=== PATIENT | male | born 1960 | race Caucasian/White ===

== ENCOUNTER 2019-07-18 14:09 | Emergency (ER) | payer OTHER ==
[2019-07-18] MEDS ORDERED: Piperacillin/Tazobac ADVAN(*) 3.375 GM in NS 0.9% 100 ML* 100 ML IVPB ONE (14:28)
[2019-07-18] MEDS ORDERED: Vancomycin(*) 1,500 MG in NS 0.9% 250 ML* 250 ML IVPB ONE (14:28)
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
[2019-07-18 14:56] LABS: Hematocrit 23 % (42-52); Hemoglobin 7.4 g/dL (14.0-18.0); Mean Corpuscular HGB Conc 32 g/dL (31-36); Mean Corpuscular Hemoglobin 25 pg (27-31); Mean Corpuscular Volume 76 fL (80-94); Mean Platelet Volume 7.4 fL (7.4-10.4); Platelet Count 962 10^3/uL (150-450); Red Blood Count 3.03 10^6 /uL (4.18-5.48); Red Cell Distribution Width 23 % (10-15); White Blood Count 24.4 10^3/uL (3.5-10.8)
[2019-07-18] MEDS ORDERED: NS 0.9% 1000 ML** 1,000 ML IV.FLUID IV ONE (15:06)
[2019-07-18 15:10] LABS: Albumin 2.7 g/dL (3.2-5.2); Albumin/Globulin Ratio 0.6 (1-3); BUN/Creatinine Ratio 25.7 (8-20); C Reactive Protein 262.66 mg/L (<8.01); Calcium 9.5 mg/dL (8.6-10.3); EGFR Non-African American 52.1 (>60); Globulin 4.9 g/dL (2-4); Potassium 4.7 mmol/L (3.5-5.0); Total Bilirubin 0.3 mg/dL (0.2-1.0); Total Protein 7.6 g/dL (6.4-8.9)
[2019-07-18] MEDS ORDERED: NS 0.9% 1000 ML** 1,000 ML IV ONE (15:17)
[2019-07-18 15:29] LABS: ABS Basophils 0.1 10^3/ul (0-0.2); ABS Lymphocytes 1.6 10^3/ul (1.0-4.8); ABS Monocytes 0.9 10^3/ul (0-0.8); ABS Neutrophils 21.9 10^3/ul (1.5-7.7); Lymphocyte % 6.5 %; Microcytosis 1+; Polychromasia 1+
[2019-07-18 16:45] LABS: Erythrocyte Sed Rate > 120 mm/Hr (0-19)
[2019-07-18 17:21] LABS: Urine Appearance Turbid; Urine Bilirubin Negative (Negative); Urine Blood 1+ (Negative); Urine Color Amber; Urine Glucose Negative (Negative); Urine Ketones Negative (Negative); Urine Nitrite Negative (Negative); Urine Protein 1+(30 mg/dL) (Negative); Urine Specific Gravity 1.009 (1.010-1.030); Urine Urobilinogen Negative (Negative)
[2019-07-18 17:26] LABS: Urine Bacteria 1+ (Absent); Urine Red Blood Cell Trace(0-2/hpf) (Absent); Urine Squamous Epithelial Cell Present (Absent); Urine White Blood Cell 3+(>20/hpf) (Absent)
[2019-07-18 17:33] VITALS: BP 92/79
--- NOTE | 2019-07-19 14:23 | ED ---
Imaging and Labs Follow Up Follow Up Type: Labs/Cultures Labs/Culture Result: Initial blood cultures show growth in one of 4 bottles of gram-positive cocci in clusters negative for MRSA or MSSA. Patient Communication/Plan: Results faxed to [facility] as the patient was transferred. Nothing further at this time. Provider Diagnoses: Osteomyelitis, Microcytic anemia
== END 2019-07-18 17:30 | disposition short-term general hospital (02) ==
LOC: ED 14:09
DX: M86.162 Other acute osteomyelitis, left tibia and fibula (principal); D50.9 Iron deficiency anemia, unspecified; L89.893 Pressure ulcer of other site, stage 3; L89.152 Pressure ulcer of sacral region, stage 2; L97.529 Non-pressure chronic ulcer of other part of left foot with unspecified severity; Z79.82 Long term (current) use of aspirin
CPT/HCPCS: 36415; 71045; 80053; 81003; 81015; 83605; 85025; 85060; 85652; 86140; 86850; 86900; 86901; 87040; 87077; 87086; 87150; 87205; 96361; 96365; 96366; 99284; J2543; J3370

== ENCOUNTER 2019-07-28 11:15 | Inpatient (IN) | payer OTHER ==
[2019-07-28] MEDS ORDERED: Senna TAB 8.6 mg* TAB PO PRN (16:22)
[2019-07-28] MEDS ORDERED: Acetaminophen TAB* 325 MG PO PRN (16:22)
[2019-07-28] MEDS ORDERED: Magnesium Hydroxide LIQ* 30 ML UDC PO PRN (16:22)
[2019-07-28] MEDS: Docusate CAP* 100 MG PO SCH (19:08)
[2019-07-28] MEDS ORDERED: ceFAZolin VIAL(*) 2 GM in NS 0.9% 100 ML* 100 ML IVPB SCH (20:00)
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
[2019-07-28 20:29] LABS: Urine Appearance Clear; Urine Bilirubin Negative (Negative); Urine Blood Negative (Negative); Urine Color Straw; Urine Glucose Negative (Negative); Urine Ketones Negative (Negative); Urine Nitrite Negative (Negative); Urine Protein Negative (Negative); Urine Urobilinogen Negative (Negative)
[2019-07-28 20:34] LABS: Urine Bacteria Absent (Absent); Urine Red Blood Cell Trace(0-2/hpf) (Absent); Urine White Blood Cell 2+(11-20/hpf) (Absent)
[2019-07-28] MEDS ORDERED: Zinc Oxide 40% (TOPICAL)* TUBE TOPICAL SCH (21:00)
[2019-07-28] MEDS: ceFAZolin 2 GM PREMIX in ORs 2 GM/50 ML BAG IV SCH (21:11)
[2019-07-28] MEDS: Heparin VIAL(*) 5000 UNITS/ML VIAL (FIVE THOUSAND) SUBCUT SCH (21:58)
[2019-07-29] MEDS: oxyCODONE TAB* 5 MG TAB PO PRN (03:57)
[2019-07-29] MEDS: ceFAZolin 2 GM PREMIX in ORs 2 GM/50 ML BAG IV SCH ×3 (04:49→21:52)
[2019-07-29 06:00] LABS: Hematocrit 36 % (42-52); Hemoglobin 11.8 g/dL (14.0-18.0); Mean Corpuscular HGB Conc 33 g/dL (31-36); Mean Corpuscular Hemoglobin 28 pg (27-31); Mean Corpuscular Volume 84 fL (80-94); Mean Platelet Volume 8.8 fL (7.4-10.4); Platelet Count 501 10^3/uL (150-450); Red Blood Count 4.21 10^6 /uL (4.18-5.48); Red Cell Distribution Width 20 % (10-15)
[2019-07-29 06:23] LABS: Albumin 2.4 g/dL (3.2-5.2); Albumin/Globulin Ratio 0.8 (1-3); BUN/Creatinine Ratio 9.7 (8-20); Calcium 8.1 mg/dL (8.6-10.3); EGFR African American 72.5 (>60); EGFR Non-African American 59.9 (>60); Globulin 3.2 g/dL (2-4); Potassium 4.2 mmol/L (3.5-5.0); Total Bilirubin 0.2 mg/dL (0.2-1.0); Total Protein 5.6 g/dL (6.4-8.9)
[2019-07-29 07:40] LABS: ABS Eosinophils 0.2 10^3/ul (0-0.6); ABS Lymphocytes 1.8 10^3/ul (1.0-4.8); ABS Monocytes 0.4 10^3/ul (0-0.8); ABS Neutrophils 6.5 10^3/ul (1.5-7.7); Eosinophil % 2.7 %; Lymphocyte % 19.7 %
[2019-07-29] MEDS: Heparin VIAL(*) 5000 UNITS/ML VIAL (FIVE THOUSAND) SUBCUT SCH ×2 (08:54→21:56)
[2019-07-29] MEDS: Docusate CAP* 100 MG PO SCH ×2 (08:59→21:37)
[2019-07-29] MEDS: Nicotine PATCH 14 MG/24 HR* PATCH TRANSDERM SCH (08:59)
[2019-07-29 16:52] LABS: C Reactive Protein 51.17 mg/L (<8.01)
[2019-07-29 18:59] LABS: Erythrocyte Sed Rate 58 mm/Hr (0-19)
--- NOTE | 2019-07-29 19:12 | PN ---
Progress Note Date of Service: 07/29/19 Note: GAMALIEL FRIAS was visited. Therapy notes read and reviewed. Grumpy and obstreperous but participated in therapy. On IV antibiotics Ancef 2 gm IV Q 8. He is otherwise doing ok. Refuses Nicotine patch Current Medications: Active Medications Generic Name Dose Route Start Last Admin Trade Name Freq PRN Reason Stop Dose Admin Acetaminophen 650 mg 07/28/19 16:22 Tylenol Tab* PO Q6H PRN MILD PAIN or TEMP > 100.4 Docusate Sodium 100 mg 07/28/19 21:00 07/29/19 08:59 Colace Cap* PO Not Given BID CHERRY Heparin Sodium (Porcine) 1 ml 07/29/19 06:00 07/29/19 14:18 Heparin Flush Picc/Ml/Cvc(*) FLUSH 1 ml 0600,1800 CHERRY Administration Protocol Heparin Sodium (Porcine) 5,000 units 07/28/19 21:00 07/29/19 08:54 Heparin Vial(*) SUBCUT 5,000 units Q12HR CHERRY Administration Cefazolin Sodium/Dextrose 2 gm in 50 mls @ 100 mls/hr 07/28/19 21:00 13:30 Kefzol 2 Gm Premix In Ors(*) IV 100 mls/hr Q8H CHERRY Administration Magnesium Hydroxide 30 ml 07/28/19 16:22 Milk Of Magnesia Liq* PO Q6H PRN CONSTIPATION Nicotine 1 patch 07/29/19 09:00 07/29/19 08:59 Nicotine Patch 14 Mg/24 Hr* TRANSDERM Not Given DAILY [facility] Oxycodone HCl 5 mg 07/28/19 18:31 07/29/19 03:57 Roxycodone Tab* PO 5 mg Q4H PRN Administration PAIN - SEVERE Pharmacy Profile Note 1 note 07/29/19 21:00 Nicotine Patch Removal Note* PATCH OFF 2100 CHERRY Senna 2 tab 07/28/19 16:22 Senokot 8.6 Mg Tab* PO BEDTIME PRN CONSTIPATION Zinc Oxide 1 applic 07/28/19 21:00 07/28/19 20:46 Zinc Oxide 40% (Topical)* TOPICAL 1 applic BEDTIME CHERRY Administration Vital Signs: Vital Signs Temp Pulse Resp BP Pulse Ox 98.1 F 98 20 102/62 95 07/29/19 16:05 07/29/19 16:05 07/29/19 16:05 07/29/19 16:44 07/29/19 08:55 Lab Results: Laboratory Results - last 24 hr 07/28/19 07/29/19 07/29/19 19:35 05:35 05:35 WBC 9.0 RBC 4.21 Hgb 11.8 L Hct 36 L MCV 84 MCH 28 MCHC 33 RDW 20 H Plt Count 501 H D MPV 8.8 Neut % (Auto) 73.0 Lymph % (Auto) 19.7 [place] % (Auto) 4.1 Eos % (Auto) 2.7 Baso % (Auto) 0.5 Absolute Neuts (auto) 6.5 Absolute Lymphs (auto) 1.8 Absolute Monos (auto) 0.4 Absolute Eos (auto) 0.2 Absolute Basos (auto) 0.0 Absolute Nucleated RBC 0.0 Nucleated RBC % 0.0 ESR 58 H Sodium 136 Potassium 4.2 Chloride 101 Carbon Dioxide 29 Anion Gap 6 BUN 12 Creatinine 1.24 H Est GFR ( Amer) 72.5 Est GFR (Non-Af Amer) 59.9 BUN/Creatinine Ratio 9.7 Glucose 82 Calcium 8.1 L Total Bilirubin 0.20 AST 10 L ALT 3 L Alkaline Phosphatase 64 C-Reactive Protein 51.17 H Total Protein 5.6 L Albumin 2.4 L Globulin 3.2 Albumin/Globulin Ratio 0.8 L Urine Color Straw Urine Appearance Clear Urine pH 8.0 Ur Specific Rowe 1.010 Urine Protein Negative Urine Ketones Negative Urine Blood Negative Urine Nitrate Negative Urine Bilirubin Negative Urine Urobilinogen Negative Ur Leukocyte Esterase Trace A Urine WBC (Auto) 2+(11-20/hpf) A Urine RBC (Auto) Trace(0-2/hpf) Urine Bacteria Absent Urine Glucose Negative Exam: GENERAL: In no distress LUNGS: Clear bilaterally HEART: Regular rhythm ABDOMEN: Soft EXTREMITIES: Left AKA, stump in ampu-shield NEUROLOGIC: Sensation intact in RLE. Moves UE and RLE with 5/5 strength. Hip flx on left at least 4 Assessment/Plan: 1. Left above the knee amputation: PT/OT. Ampu shield at all times except for skin check 2. Extensive osteomyelitis: Ancef 2 gm IV Q8H x 27 more days 3. Urethral Stricture: Valladares 4. Cataracts: Optho follow up after d/c 5. DVT Prophylaxis: Heparin S/Q 6. Advanced Directives: Full Code 7. Sacral pressure ulcer: Zinc Oxide 8. Nicotine Addiction: Refuses patch. 07/29/19 19:28
[2019-07-29] MEDS ORDERED: Nicotine Patch Removal NOTE PATCH OFF SCH (21:00)
[2019-07-29] MEDS: Zinc Oxide 40% (TOPICAL)* TUBE TOPICAL SCH (22:12)
[2019-07-30] MEDS: oxyCODONE TAB* 5 MG TAB PO PRN (01:40)
[2019-07-30] MEDS: ceFAZolin 2 GM PREMIX in ORs 2 GM/50 ML BAG IV SCH ×3 (05:31→22:01)
[2019-07-30] MEDS: Heparin VIAL(*) 5000 UNITS/ML VIAL (FIVE THOUSAND) SUBCUT SCH ×2 (09:49→22:14)
[2019-07-30] MEDS: Zinc Oxide 40% (TOPICAL)* TUBE TOPICAL SCH ×4 (09:50→22:17)
[2019-07-30] MEDS: Docusate CAP* 100 MG PO SCH ×2 (09:50→22:10)
[2019-07-30] MEDS: Nicotine PATCH 14 MG/24 HR* PATCH TRANSDERM SCH (09:50)
--- NOTE | 2019-07-30 18:29 | PN ---
Progress Note Date of Service: 07/30/19 Note: GAMALIEL FRIAS was visited. Therapy notes read and reviewed. Worked with therapy today and a little less grumpy. He continues to complain of itching. Will order Atarax Current Medications: Active Medications Generic Name Dose Route Start Last Admin Trade Name Freq PRN Reason Stop Dose Admin Acetaminophen 650 mg 07/28/19 16:22 Tylenol Tab* PO Q6H PRN MILD PAIN or TEMP > 100.4 Docusate Sodium 100 mg 07/28/19 21:00 07/30/19 09:50 Colace Cap* PO Not Given BID CHERRY Heparin Sodium (Porcine) 1 ml 07/29/19 06:00 07/30/19 13:16 Heparin Flush Picc/Ml/Cvc(*) FLUSH 1 ml 0600,1800 CHERRY Administration Protocol Heparin Sodium (Porcine) 5,000 units 07/28/19 21:00 07/30/19 09:49 Heparin Vial(*) SUBCUT 5,000 units Q12HR CHERRY Administration Hydroxyzine HCl 25 mg 07/30/19 18:24 Atarax Tab* PO Q6H PRN Pruritis Cefazolin Sodium/Dextrose 2 gm in 50 mls @ 100 mls/hr 07/28/19 21:00 12:26 Kefzol 2 Gm Premix In Ors(*) IV 100 mls/hr Q8H CHERRY Administration Magnesium Hydroxide 30 ml 07/28/19 16:22 Milk Of Magnesia Liq* PO Q6H PRN CONSTIPATION Oxycodone HCl 5 mg 07/28/19 18:31 07/30/19 01:40 Roxycodone Tab* PO 5 mg Q4H PRN Administration PAIN - SEVERE Senna 2 tab 07/28/19 16:22 Senokot 8.6 Mg Tab* PO BEDTIME PRN CONSTIPATION Zinc Oxide 1 applic 07/29/19 21:00 07/30/19 09:52 Zinc Oxide 40% (Topical)* TOPICAL 1 applic BID CHERRY Administration Vital Signs: Vital Signs Temp Pulse Resp BP Pulse Ox 98.3 F 90 18 99/56 100 07/30/19 16:00 07/30/19 16:00 07/30/19 16:00 07/30/19 16:00 07/30/19 16:00 Lab Results: Laboratory Results - last 24 hr 07/29/19 05:35 ESR 58 H Exam: GENERAL: In no distress LUNGS: Clear bilaterally HEART: Regular rhythm ABDOMEN: Soft EXTREMITIES: Left AKA, stump in ampu-shield NEUROLOGIC: Sensation intact in RLE. Moves UE and RLE with 5/5 strength. Hip flx on left at least 4 Assessment/Plan: 1. Left above the knee amputation: PT/OT. Ampu shield at all times except for skin check 2. Extensive osteomyelitis: Ancef 2 gm IV Q8H x 26 more days 3. Urethral Stricture: Valladares 4. Cataracts: Optho follow up after d/c 5. DVT Prophylaxis: Heparin S/Q 6. Advanced Directives: Full Code 7. Sacral pressure ulcer: Zinc Oxide 8. Nicotine Addiction: Refuses patch. 07/30/19 18:29
[2019-07-30] MEDS: Lactobacillus Acidophilus* 1 TAB PO SCH (22:14)
[2019-07-31] MEDS: hydrOXYzine HCL TAB* 25 MG PO PRN (03:06)
[2019-07-31] MEDS: ceFAZolin 2 GM PREMIX in ORs 2 GM/50 ML BAG IV SCH (06:08)
[2019-07-31] MEDS: Zinc Oxide 40% (TOPICAL)* TUBE TOPICAL SCH ×2 (09:47→20:46)
[2019-07-31] MEDS: Docusate CAP* 100 MG PO SCH ×2 (09:47→20:42)
[2019-07-31] MEDS: Heparin VIAL(*) 5000 UNITS/ML VIAL (FIVE THOUSAND) SUBCUT SCH ×2 (09:49→20:43)
[2019-07-31] MEDS: Lactobacillus Acidophilus* 1 TAB PO SCH ×2 (09:51→20:42)
--- NOTE | 2019-07-31 12:28 | PMRUTEAM ---
PMRU: Team Meeting Current Status: Physical Therapy: Current Status Current Rolling Status Supervision/Touching Current Supine <-> Sit Status Supervision/Touching Current Sit <-> Stand Status Supervision/Touching Current Bed <-> Chair Status Dependent Transfer/Bed Mobility Rolling Walker Recommended Devices Current Picking Up Object Dependent Status Current Car Transfer Status Dependent Current Ambulation Assistance Not attempted Status Current Wheelchair Propulsion Patient Refused Ability Status Current Stair Climbing Status Not attempted Current Curb Assistance Status Not attempted Objective Comments Ampu-shield successfully remained donned throughout session. Occupational Therapy: Current Status Current Upper Body Dressing Setup or Clean-up Assist Status Current Lower Body Dressing Dependent Status Current Footwear Status Dependent Current Bathing Status Partial/Moderate Current Grooming Status Setup or Clean-up Assist Current Toileting Status Dependent Current Toilet Transfer Status Dependent Current Eating Status Setup or Clean-up Assist Nursing: Current Status Skin Deviations [sacrum] Wound Skin Deviations [left high AKA Incision ] Skin Deviations [UK Stump] Incision Skin Deviations [Generalized] Rash Skin Deviations [Buttocks, Other groin] Skin Deviations [Right Toe] Other Skin Deviations [Right Arm] Abrasion,Rash Skin Deviations [Right Medial Other Ankle] Skin Deviations [Right Pressure Ulcer Buttocks] Skin Deviation Description [ stage 2. optifoam changed sacrum] Skin Deviation Description [ optifoam intact left high AKA] Skin Deviation Description [ Flat, pink rash on extremities, torso; pt reports Generalized] s/p recent application of unknown cream at former hospital Skin Deviation Description [ redness decreased. lotion applied Buttocks, groin] Skin Deviation Description [ nails blackened Right Toe] Skin Deviation Description [ scattered scabs, pinkness Right Arm] Skin Deviation Description [ Rough, ridged, brown skin Right Medial Ankle] lotion applied Skin Deviation Description [ stage 2 per report Right Buttocks] Rec Therapy: Current Status Summary of Assessment and Pt minimally involved in conversation, dysphoric Clinical Impression and labile at times, talking in a loud volume to this repairer typewriter. Pt made statements such as "what do you want" and " I can't do anything anymore". Pt identified few leisure interests, saying that he isn't able to do as much and that his life is different now (physically) prior to admission. Pt was open to trying pet therapy stating "maybe" and leisure visits while on the unit. Treatment Goals Pt will engage in leisure activities while on the unit as tolerated Treatment Plan Provide recreation therapy services and encourage involvement Social Work: Current Status Discharge Plan return home with home care svs and family support Potential for Family Training TBD Anticipated Discharge Home Destination Discharge With home care svs and family support Goals: Physical Therapy: Goals Goals to Be Accomplished in ( 10-14 Days) Goal: Rolling Assistance Independent Goal Supine <-> Sit Status Independent Goal Sit <-> Stand Status Independent Goal Bed <-> Chair Status Independent Transfer/Bed Mobility Rolling Walker Recommended Devices Goal: Picking Up Object Independent Goal: Car Transfer Status Supervision/Touching Goal: Ambulation Assistance Supervision/Touching Ambulation Assistive Devices Rolling Walker Ambulation Distance (ft) 25' Goal: Wheelchair Propulsion Supervision/Touching Ability Wheelchair Distance (ft) 150 Goal: Stairs Assistance Partial/Moderate Number of Stairs 1 Goal: Curb Assistance Partial/Moderate Goal: Home Exercise Program Independent Assistance Occupational Therapy: Goals Goals to be Completed in (Days 7-10 ) Goal Upper Body Dressing Setup or Clean-up Assist Routine Goal Lower Body Dressing Setup or Clean-up Assist Routine Goal Footwear Status Setup or Clean-up Assist Goal Bathing Routine (OT) Setup or Clean-up Assist Goal Grooming Routine Setup or Clean-up Assist Goal Toilet Hygiene and Setup or Clean-up Assist Clothing Management Routine Goal Toilet Transfer Routine Supervision/Touching Goal Functional Transfers for Supervision/Touching ADL Goal Feeding Routine Setup or Clean-up Assist Social Work: Goals Discharge Plan return home with home care svs and family support Potential for Family Training TBD Anticipated Discharge Home Destination Discharge With home care svs and family support Care Plan: Care Plan ADL's - Improve/Maintain Start: 07/29/19 16:33 Freq: DAILY@0700,1900 Status: Active Target: 07/30/19 Protocol: Activity Type Activity Date Activity User E-Sign Co-Sign Detail Recorded Client Recorded Date Recorded By Document 07/30/19 13:02 [id number] 07/30/19 13:02 [id number] 07/30/19 13:02 PMRU Outcome: ADL's/ADL Transfers Orders/Interventions Occupational Therapy Evaluation & Treatment Communication Tool in Patient Room Device Yes Address Deficits Secondary To: s/p Left AKA Patient to receive OT 5x/wk for 60-120 Therex min/day Self Care Management Group Therapy UE/LE ADL's with Assist Yes: supervision/ setup ADL Transfers with Assist supervision/ setup Toileting: Transfers,Clothing Management supervision/ ,Hygeine w/Assist setup Progression Toward Outcome/Goals Not Progressing Lack of Progression Comment Pt participated fair in treatment session, perseverated at beginning of session on being itchy and not wanting to don ampushield during session , RN aware. Coping/Psych-Improve/Maintain Start: 07/28/19 16:44 Freq: DAILY@0700,1900 Status: Active Target: 08/07/19 Protocol: Activity Type Activity Date Activity User E-Sign Co-Sign Detail Recorded Client Recorded Date Recorded By Document 07/31/19 10:00 [id number] 07/31/19 12:06 [id number] 07/31/19 10:00 PMRU Outcome: Coping/Psychosocial Current Coping Outcome/Goals Verbalization of Acceptance of Rehab Admit Verbalization of Sense of Control Over Health Status Utilization of Appropriate Problem Solving Techniques Willingness to Participate in Treatment Plan and Basic Needs Progression Toward Outcome/Goals Progressing Current Psychosocial Outcome/Goals Maintain/ Improve Emotional Health Demonstrates Knowledge of Healthy Coping Mechanisms Available Cooperate/ Participate in Plan Progression Toward Outcome/Goals Progressing DVT Prophylaxis- Improve/Maintain Start: 07/28/19 16:44 Freq: DAILY@0700,1900 Status: Active Target: 08/07/19 Protocol: Activity Type Activity Date Activity User E-Sign Co-Sign Detail Recorded Client Recorded Date Recorded By Document 07/31/19 10:00 [id number] 07/31/19 12:06 [id number] 07/31/19 10:00 PMRU Outcome: DVT Prophylaxis Current DVT Outcome/Goals Remains Free of DVT Complies with DVT Prophylaxis /Treatment Demonstrates Knowledge of DVT Prevention/ Treatment Progression Toward Outcome/Goals Progressing Discharge Planning - Improve/Maintain Start: 07/28/19 16:44 Freq: DAILY@0700,1900 Status: Active Target: 08/07/19 Protocol: Activity Type Activity Date Activity User E-Sign Co-Sign Detail Recorded Client Recorded Date Recorded By Document 07/31/19 10:00 [id number] 07/31/19 12:06 [id number] 07/31/19 10:00 PMRU Outcome: Discharge Planning Current Discharge Planning Outcome/Goals Demonstrates Understanding of Discharge Plan Homecare Referral - See Comment Progression Toward Outcome/Goals Progressing Education-Improve/Maintain Start: 07/28/19 16:44 Freq: DAILY@0700,1900 Status: Active Target: 08/07/19 Protocol: Activity Type Activity Date Activity User E-Sign Co-Sign Detail Recorded Client Recorded Date Recorded By Document 07/31/19 10:00 [id number] [email or web address] 07/31/19 12:06 [id number] 07/31/19 10:00 PMRU Outcome: Education Current Education Outcome/Goals Demonstrate/ Verbalize Understanding of Written Discharge Instructions Demonstrates Skills Encourage Questions Progression Toward Outcome/Goals Progressing /GI-Improve/Maintain Start: 07/28/19 16:44 Freq: DAILY@0700,1900 Status: Active Target: 08/07/19 Protocol: Activity Type Activity Date Activity User E-Sign Co-Sign Detail Recorded Client Recorded Date Recorded By Document 07/31/19 10:00 [id number] 07/31/19 12:06 [id number] 07/31/19 10:00 PMRU Outcome: Genitourinary/ Gastrointestinal Current Gastrointestinal Outcome/Goals Maintain/ Achieve Bowel Regularity in Accordance with Pt's Baseline Remain Free of Emesis Prevent Constipation Bowel Regularity at Home Laxatives as Ordered Other GI Outcome/Goals lactobacillis started this shift Progression Toward Outcome/Goals Progressing Current Genitourinary Outcome/Goals Maintain/ Achieve Urinary Continence Maintain/ Achieve Adequate Urinary Output Remain Free of Hospital- Acquired UTI Other Genitourinary Outcome/Goals evans present Progression Toward Outcome/Goals Progressing Medication Administration Start: 07/28/19 16:44 Freq: DAILY@0700,1900 Status: Active Target: 08/07/19 Protocol: Activity Type Activity Date Activity User E-Sign Co-Sign Detail Recorded Client Recorded Date Recorded By Document 07/31/19 10:00 [id number] 07/31/19 12:06 [id number] 07/31/19 10:00 PMRU Outcome: Medication Administration Assess Patient Knowledge/Teach Med Yes Education for all Meds Current Accounting Intern Outcome/Goals Family/ Caregiver Administer Medications at Home Demonstrates Understanding Progression Towards Outcome/Goals Progressing Is Patient Going Home on Lovenox? No Mobility- Improve/Maintain Start: 07/29/19 18:36 Freq: DAILY@0700,1900 Status: Active Target: 07/30/19 Protocol: Activity Type Activity Date Activity User E-Sign Co-Sign Detail Recorded Client Recorded Date Recorded By Document 07/29/19 18:36 [id number] 07/29/19 18:38 [id number] 07/29/19 18:36 PMRU Outcome: Mobility Physical Therapy Evaluation and Yes Treatment Activity OOB with Assistance Yes WBAT No NWB Yes TTWB No Device Yes Assistance Yes Patient to be seen 5x/wk for 60-120 min/ Therex day for: Mobility Training Gait Training W/C Mobility Balance Other Other Therapy Comment discharge training, discharge planning Current Mobility Outcome/Goals Improve Mobility Status Demonstrates Proper Use of Assistive Devices Progression Toward Outcome/Goals Goal Initiation Bed Mobility Yes: independent Transfers Yes: independent with RW Gait x ft Yes: supervision with RW, 25' W/C Mobility x ft Yes: 150' independent Up/Down Stairs Yes: 1 step with RW and min Ax1 With HEP Yes: independent Pain/Comfort- Improve/Maintain Start: 07/28/19 16:44 Freq: DAILY@0700,1900 Status: Active Target: 08/07/19 Protocol: Activity Type Activity Date Activity User E-Sign Co-Sign Detail Recorded Client Recorded Date Recorded By Document 07/31/19 10:00 [id number] 07/31/19 12:06 [id number] 07/31/19 10:00 PMRU Outcome: Pain/Comfort Current Pain/Comfort Outcome/Goals Demonstrates Knowledge and Use of Available Comfort Measures Achieves Acceptable Comfort/Pain Level as Determined by Patient/Condit Maintain Comfort Level Allowing Patient to Fully Participate in Rehab Progression Toward Outcome/Goals Progressing Rec Therapy- Improve/Maintain Start: 07/29/19 14:18 Freq: DAILY@0700,1900 Status: Active Target: 08/04/19 Protocol: Activity Type Activity Date Activity User E-Sign Co-Sign Detail Recorded Client Recorded Date Recorded By Document 07/29/19 14:18 [id number] 07/29/19 14:19 [id number] 07/29/19 14:18 PMRU Outcome: Recreation Therapy Current Rec Ther Outcome/Goals Complete Rec Therapy Assessment Meet with Patient Regularly for Support Encourage Leisure Involvement Progression Toward Outcome/Goals Goal Initiation Safety- Improve/Maintain Start: 07/28/19 14:57 Freq: DAILY@0700,1900 Status: Active Target: 08/07/19 Protocol: Activity Type Activity Date Activity User E-Sign Co-Sign Detail Recorded Client Recorded Date Recorded By Document 07/31/19 10:00 [id number] 07/31/19 12:06 [id number] 07/31/19 10:00 PMRU Outcome: Safety Current Safety Outcome/Goals Remain Free of Injury or Harm Cooperates with Safety Measures for Least Restrictive Environment Prevent Falls/ Injury Progression Toward Outcome/Goals Progressing Skin- Improve/Maintain Start: 07/28/19 16:44 Freq: DAILY@0700,1900 Status: Active Target: 08/07/19 Protocol: Activity Type Activity Date Activity User E-Sign Co-Sign Detail Recorded Client Recorded Date Recorded By Document 07/31/19 10:00 [id number] 07/31/19 12:06 [id number] 07/31/19 10:00 PMRU Outcome: Skin Skin Risk Level Moderate Risk Skin Orders Dressing Change Teach Patient Turn/Position q2hr While in Bed Skin Orders Comment optifoam to sacrum and l stump Current Skin Outcome/Goals Maintain/ Improve Skin Integrity Maintain/ Improve Wound Status Surgical Incisions Healing Progression Toward Outcome/Goals Progressing - Interdisciplinary Staff Present OT Staff Present: Yun Vargas PT Staff Present: S[facility] T[facility]well Rec Therapy Staff Present: Saray [facility] Medicine Note: Length of Stay: 11 days Anticipated Discharge Destination: Home Tentative Discharge Date: 08/11/19 Discharged to: Home
[2019-07-31] MEDS: ceFAZolin 2 GM in NS PREMIX(*) 2 GM/100 ML BAG IVPB SCH ×2 (14:44→22:07)
--- NOTE | 2019-07-31 18:57 | PN ---
Progress Note Date of Service: 07/31/19 Note: GAMALIEL FRIAS was visited. Therapy notes read and reviewed. He was discussed in interdisciplinary plan of care rounds. He complains of pain over his sacral ulcer, states Percocet doesn't help. Will try tramadol. Current Medications: Active Medications Generic Name Dose Route Start Last Admin Trade Name Freq PRN Reason Stop Dose Admin Acetaminophen 650 mg 07/28/19 16:22 Tylenol Tab* PO Q6H PRN MILD PAIN or TEMP > 100.4 Docusate Sodium 100 mg 07/28/19 21:00 07/31/19 09:47 Colace Cap* PO Not Given BID CHERRY Heparin Sodium (Porcine) 1 ml 07/29/19 06:00 07/31/19 18:02 Heparin Flush Picc/Ml/Cvc(*) FLUSH 1 ml 0600,1800 CHERRY Administration Protocol Heparin Sodium (Porcine) 5,000 units 07/28/19 21:00 07/31/19 09:49 Heparin Vial(*) SUBCUT 5,000 units Q12HR CHERRY Administration Hydroxyzine HCl 25 mg 07/30/19 18:24 07/31/19 03:06 Atarax Tab* PO 25 mg Q6H PRN Administration Pruritis Cefazolin Sodium 2 gm in 100 mls @ 200 mls/hr 07/31/19 13:00 07/31/19 14:44 Kefzol 2 Gm In Ns Premix(*) IVPB 200 mls/hr Q8H CHERRY Administration Lactobacillus Rhamnosus 1 tab 07/30/19 21:00 07/31/19 09:51 Lactobacillus Acidophilus* PO 1 tab BID CHERRY Administration Magnesium Hydroxide 30 ml 07/28/19 16:22 Milk Of Magnesia Liq* PO Q6H PRN CONSTIPATION Oxycodone HCl 5 mg 07/28/19 18:31 07/30/19 01:40 Roxycodone Tab* PO 5 mg Q4H PRN Administration PAIN - SEVERE Senna 2 tab 07/28/19 16:22 Senokot 8.6 Mg Tab* PO BEDTIME PRN CONSTIPATION Zinc Oxide 1 applic 07/29/19 21:00 07/31/19 09:47 Zinc Oxide 40% (Topical)* TOPICAL Not Given BID [facility] Vital Signs: Vital Signs Temp Pulse Resp BP Pulse Ox 98.6 F 99 16 109/54 99 07/31/19 14:00 07/31/19 14:00 07/31/19 14:00 07/31/19 14:00 07/31/19 14:00 Exam: GENERAL: In no distress LUNGS: Clear bilaterally HEART: Regular rhythm ABDOMEN: Soft EXTREMITIES: Left AKA, stump in ampu-shield NEUROLOGIC: Sensation intact in RLE. Moves UE and RLE with 5/5 strength. Hip flx on left at least 4 Assessment/Plan: 1. Left above the knee amputation: PT/OT. Ampu shield at all times except for skin check 2. Extensive osteomyelitis: Ancef 2 gm IV Q8H x 25 more days 3. Urethral Stricture: [place] 4. Cataracts: Optho follow up after d/c 5. DVT Prophylaxis: Heparin S/Q 6. Advanced Directives: Full Code 7. Sacral pressure ulcer: Zinc Oxide, optifoam. Will ask for a wound care consult 8. Nicotine Addiction: Refuses patch or nicotine gum. 07/31/19 18:57
[2019-07-31] MEDS: traMADol TAB* 50 MG PO PRN (20:41)
[2019-08-01] MEDS: ceFAZolin 2 GM in NS PREMIX(*) 2 GM/100 ML BAG IVPB SCH ×3 (05:05→21:47)
[2019-08-01] MEDS: traMADol TAB* 50 MG PO PRN ×2 (08:46→21:45)
[2019-08-01] MEDS: Heparin VIAL(*) 5000 UNITS/ML VIAL (FIVE THOUSAND) SUBCUT SCH ×2 (08:46→21:47)
[2019-08-01] MEDS: Lactobacillus Acidophilus* 1 TAB PO SCH ×2 (08:46→21:45)
[2019-08-01] MEDS: hydrOXYzine HCL TAB* 25 MG PO PRN (08:47)
[2019-08-01] MEDS: Docusate CAP* 100 MG PO SCH ×2 (08:47→21:45)
[2019-08-01] MEDS: Zinc Oxide 40% (TOPICAL)* TUBE TOPICAL SCH ×2 (08:47→22:22)
[2019-08-01] MEDS: oxyCODONE TAB* 5 MG TAB PO PRN (12:21)
--- NOTE | 2019-08-01 17:22 | PN ---
Progress Note Date of Service: 08/01/19 Note: GAMALIEL FRIAS was visited. Therapy notes read and reviewed. BP a little low. He says that Atarax did not help his itch. He had questions about his urethral stricture; will try to get urology for answers next week. Current Medications: Active Medications Generic Name Dose Route Start Last Admin Trade Name Freq PRN Reason Stop Dose Admin Acetaminophen 650 mg 07/28/19 16:22 Tylenol Tab* PO Q6H PRN MILD PAIN or TEMP > 100.4 Docusate Sodium 100 mg 07/28/19 21:00 08/01/19 08:47 Colace Cap* PO 100 mg BID CHERRY Administration Heparin Sodium (Porcine) 1 ml 07/29/19 06:00 08/01/19 13:47 Heparin Flush Picc/Ml/Cvc(*) FLUSH 1 ml 0600,1800 CHERRY Administration Protocol Heparin Sodium (Porcine) 5,000 units 07/28/19 21:00 08/01/19 08:46 Heparin Vial(*) SUBCUT 5,000 units Q12HR CHERRY Administration Hydroxyzine HCl 25 mg 07/30/19 18:24 08/01/19 08:47 Atarax Tab* PO 25 mg Q6H PRN Administration Pruritis Cefazolin Sodium 2 gm in 100 mls @ 200 mls/hr 07/31/19 13:00 08/01/19 12:56 Kefzol 2 Gm In Ns Premix(*) IVPB 200 mls/hr Q8H CHERRY Administration Lactobacillus Rhamnosus 1 tab 07/30/19 21:00 08/01/19 08:46 Lactobacillus Acidophilus* PO 1 tab BID CHERRY Administration Magnesium Hydroxide 30 ml 07/28/19 16:22 Milk Of Magnesia Liq* PO Q6H PRN CONSTIPATION Oxycodone HCl 5 mg 07/28/19 18:31 08/01/19 12:21 Roxycodone Tab* PO 5 mg Q4H PRN Administration PAIN - SEVERE Senna 2 tab 07/28/19 16:22 Senokot 8.6 Mg Tab* PO BEDTIME PRN CONSTIPATION Tramadol HCl 50 mg 07/31/19 18:53 08/01/19 08:46 Ultram* PO 50 mg Q6H PRN Administration PAIN - MODERATE Zinc Oxide 1 applic 07/29/19 21:00 08/01/19 08:47 Zinc Oxide 40% (Topical)* TOPICAL 1 applic BID CHERRY Administration Vital Signs: Vital Signs Temp Pulse Resp BP Pulse Ox 98.0 F 95 18 106/61 96 08/01/19 05:18 08/01/19 05:18 08/01/19 14:08 08/01/19 05:18 08/01/19 08:00 Exam: GENERAL: In no distress LUNGS: Clear bilaterally HEART: Regular rhythm ABDOMEN: Soft EXTREMITIES: Left AKA, stump in ampu-shield NEUROLOGIC: Sensation intact in RLE. Moves UE and RLE with 5/5 strength. Hip flx on left at least 4 Assessment/Plan: 1. Left above the knee amputation: PT/OT. Ampu shield at all times except for skin check; it is falling off when he tries to stand 2. Extensive osteomyelitis: Ancef 2 gm IV Q8H x 24 more days 3. Urethral Stricture: [place] for now 4. Cataracts: Optho follow up after d/c 5. DVT Prophylaxis: Heparin S/Q 6. Advanced Directives: Full Code 7. Sacral pressure ulcer: Zinc Oxide, optifoam. Will ask for a wound care consult 8. Nicotine Addiction: Refuses patch or nicotine gum. 08/01/19 17:23
[2019-08-02] MEDS: oxyCODONE TAB* 5 MG TAB PO PRN (02:25)
[2019-08-02] MEDS: ceFAZolin 2 GM in NS PREMIX(*) 2 GM/100 ML BAG IVPB SCH ×3 (04:58→22:40)
[2019-08-02] MEDS: Heparin VIAL(*) 5000 UNITS/ML VIAL (FIVE THOUSAND) SUBCUT SCH ×2 (08:36→22:41)
[2019-08-02] MEDS: Docusate CAP* 100 MG PO SCH ×2 (08:36→22:40)
[2019-08-02] MEDS: Zinc Oxide 40% (TOPICAL)* TUBE TOPICAL SCH ×2 (08:36→22:41)
[2019-08-02] MEDS: Lactobacillus Acidophilus* 1 TAB PO SCH ×2 (08:36→22:41)
--- NOTE | 2019-08-02 20:36 | PN ---
Progress Note Date of Service: 08/02/19 Note: GAMALIEL FRIAS was visited. Therapy notes read and reviewed. His Mepiplex on his lef was changed. He has a 4 x 4 cm debrided eschar over his posterior thigh which was present on admission. Looks red and clean. Suture line ok. Sacral decubitus healing. Current Medications: Active Medications Generic Name Dose Route Start Last Admin Trade Name Freq PRN Reason Stop Dose Admin Acetaminophen 650 mg 07/28/19 16:22 Tylenol Tab* PO Q6H PRN MILD PAIN or TEMP > 100.4 Docusate Sodium 100 mg 07/28/19 21:00 08/02/19 08:36 Colace Cap* PO Not Given BID CHERRY Heparin Sodium (Porcine) 1 ml 07/29/19 06:00 08/02/19 15:10 Heparin Flush Picc/Ml/Cvc(*) FLUSH 1 ml 0600,1800 CHERRY Administration Protocol Heparin Sodium (Porcine) 5,000 units 07/28/19 21:00 08/02/19 08:36 Heparin Vial(*) SUBCUT 5,000 units Q12HR CHERRY Administration Hydroxyzine HCl 25 mg 07/30/19 18:24 08/01/19 08:47 Atarax Tab* PO 25 mg Q6H PRN Administration Pruritis Cefazolin Sodium 2 gm in 100 mls @ 200 mls/hr 07/31/19 13:00 08/02/19 13:48 Kefzol 2 Gm In Ns Premix(*) IVPB 200 mls/hr Q8H CHERRY Administration Lactobacillus Rhamnosus 1 tab 07/30/19 21:00 08/02/19 08:36 Lactobacillus Acidophilus* PO 1 tab BID CHERRY Administration Magnesium Hydroxide 30 ml 07/28/19 16:22 Milk Of Magnesia Liq* PO Q6H PRN CONSTIPATION Oxycodone HCl 5 mg 07/28/19 18:31 08/02/19 02:25 Roxycodone Tab* PO 5 mg Q4H PRN Administration PAIN - SEVERE Senna 2 tab 07/28/19 16:22 Senokot 8.6 Mg Tab* PO BEDTIME PRN CONSTIPATION Tramadol HCl 50 mg 07/31/19 18:53 08/01/19 21:45 Ultram* PO 50 mg Q6H PRN Administration PAIN - MODERATE Zinc Oxide 1 applic 07/29/19 21:00 08/02/19 08:36 Zinc Oxide 40% (Topical)* TOPICAL Not Given BID CHERRY Vital Signs: Vital Signs Temp Pulse Resp BP Pulse Ox 98.0 F 93 14 105/59 98 08/02/19 15:45 08/02/19 15:45 08/02/19 16:09 08/02/19 15:45 08/02/19 16:09 Exam: GENERAL: In no distress LUNGS: Clear bilaterally HEART: Regular rhythm ABDOMEN: Soft EXTREMITIES: Left AKA, stump in ampu-shield NEUROLOGIC: Sensation intact in RLE. Moves UE and RLE with 5/5 strength. Hip flx on left at least 4 SKIN: 3 x 3 debrided wound looks clean on posterior thigh. Sacral ulcer healing Assessment/Plan: 1. Left above the knee amputation: PT/OT. Ampu shield at all times except for skin check; it is falling off when he tries to stand. Follow up with surgeon Saturday 2. Extensive osteomyelitis: Ancef 2 gm IV Q8H x 23 more days 3. Urethral Stricture: [place] for now 4. Cataracts: Optho follow up after d/c 5. DVT Prophylaxis: Heparin S/Q 6. Advanced Directives: Full Code 7. Sacral pressure ulcer: Zinc Oxide, optifoam. Will ask for a wound care consult 8. Nicotine Addiction: Refuses patch or nicotine gum. 08/02/19 20:37
[2019-08-02] MEDS: traMADol TAB* 50 MG PO PRN (22:40)
[2019-08-03] MEDS: ceFAZolin 2 GM in NS PREMIX(*) 2 GM/100 ML BAG IVPB SCH ×3 (04:48→21:11)
[2019-08-03] MEDS: Lactobacillus Acidophilus* 1 TAB PO SCH ×2 (07:26→21:10)
[2019-08-03] MEDS: Docusate CAP* 100 MG PO SCH ×2 (07:27→21:23)
[2019-08-03] MEDS: Zinc Oxide 40% (TOPICAL)* TUBE TOPICAL SCH ×2 (07:28→21:24)
[2019-08-03] MEDS: Heparin VIAL(*) 5000 UNITS/ML VIAL (FIVE THOUSAND) SUBCUT SCH ×2 (09:50→21:19)
--- NOTE | 2019-08-03 17:02 | PN ---
Progress Note Date of Service: 08/03/19 Note: GAMALIEL FRIAS was visited. Therapy notes read and reviewed. I watched him transfer and hop a few steps. He looked very good. Will remove evans in am Current Medications: Active Medications Generic Name Dose Route Start Last Admin Trade Name Freq PRN Reason Stop Dose Admin Acetaminophen 650 mg 07/28/19 16:22 Tylenol Tab* PO Q6H PRN MILD PAIN or TEMP > 100.4 Hydrocodone Bitart/Acetaminophen 1 tab 08/03/19 14:03 [place] 5-325 Tab* PO Q4H PRN PAIN - MODERATE Diphenhydramine HCl 25 mg 08/03/19 17:00 Benadryl Po* PO Q6H PRN ITCHING Docusate Sodium 100 mg 07/28/19 21:00 08/03/19 07:27 Colace Cap* PO Not Given BID CHERRY Heparin Sodium (Porcine) 1 ml 07/29/19 06:00 08/03/19 13:40 Heparin Flush Picc/Ml/Cvc(*) FLUSH 1 ml 0600,1800 CHERRY Administration Protocol Heparin Sodium (Porcine) 5,000 units 07/28/19 21:00 08/03/19 09:50 Heparin Vial(*) SUBCUT 5,000 units Q12HR CHERRY Administration Cefazolin Sodium 2 gm in 100 mls @ 200 mls/hr 07/31/19 13:00 08/03/19 12:36 Kefzol 2 Gm In Ns Premix(*) IVPB 200 mls/hr Q8H CHERRY Administration Lactobacillus Rhamnosus 1 tab 07/30/19 21:00 08/03/19 07:26 Lactobacillus Acidophilus* PO 1 tab BID CHERRY Administration Magnesium Hydroxide 30 ml 07/28/19 16:22 Milk Of Magnesia Liq* PO Q6H PRN CONSTIPATION Senna 2 tab 07/28/19 16:22 Senokot 8.6 Mg Tab* PO BEDTIME PRN CONSTIPATION Tramadol HCl 50 mg 07/31/19 18:53 08/02/19 22:40 Ultram* PO 50 mg Q6H PRN Administration PAIN - MODERATE Zinc Oxide 1 applic 07/29/19 21:00 08/03/19 07:28 Zinc Oxide 40% (Topical)* TOPICAL Not Given BID [facility] Vital Signs: Vital Signs Temp Pulse Resp BP Pulse Ox 98.1 F 95 16 102/62 95 08/03/19 05:10 08/03/19 05:10 08/03/19 05:10 08/03/19 05:30 08/03/19 05:10 Exam: GENERAL: In no distress LUNGS: Clear bilaterally HEART: Regular rhythm ABDOMEN: Soft EXTREMITIES: Left AKA, stump in ampu-shield NEUROLOGIC: Sensation intact in RLE. Moves UE and RLE with 5/5 strength. Hip flx on left at least 4 SKIN: 3 x 3 debrided wound looks clean on posterior thigh. Sacral ulcer healing Assessment/Plan: 1. Left above the knee amputation: PT/OT. Ampu shield at all times except for skin check; it is falling off when he tries to stand. Follow up with surgeon Saturday 2. Extensive osteomyelitis: Ancef 2 gm IV Q8H x 22 more days 3. Urethral Stricture: [place] for now, will d/c in am 4. Cataracts: Optho follow up after d/c 5. DVT Prophylaxis: Heparin S/Q 6. Advanced Directives: Full Code 7. Sacral pressure ulcer: Zinc Oxide, optifoam. Will ask for a wound care consult 8. Nicotine Addiction: Refuses patch or nicotine gum. 08/03/19 17:02
[2019-08-03] MEDS: HYDROcodone/ACETAMIN 5-325 MG* 1 TAB PO PRN ×2 (17:04→21:10)
[2019-08-03] MEDS: diPHENhydraMINE PO* 25 MG PO PRN (21:10)
[2019-08-04] MEDS: HYDROcodone/ACETAMIN 5-325 MG* 1 TAB PO PRN ×5 (05:15→23:56)
[2019-08-04] MEDS: ceFAZolin 2 GM in NS PREMIX(*) 2 GM/100 ML BAG IVPB SCH ×3 (05:16→21:45)
[2019-08-04] MEDS: Lactobacillus Acidophilus* 1 TAB PO SCH ×2 (09:30→21:43)
[2019-08-04] MEDS: Heparin VIAL(*) 5000 UNITS/ML VIAL (FIVE THOUSAND) SUBCUT SCH ×2 (09:30→21:45)
[2019-08-04] MEDS: Docusate CAP* 100 MG PO SCH ×2 (09:39→21:42)
[2019-08-04] MEDS: Zinc Oxide 40% (TOPICAL)* TUBE TOPICAL SCH (09:39)
--- NOTE | 2019-08-04 12:33 | PMRUTEAM ---
PMRU: Team Meeting Current Status: Physical Therapy: Current Status Current Rolling Status Independent Current Supine <-> Sit Status Independent Current Sit <-> Stand Status Partial/Moderate Current Bed <-> Chair Status Partial/Moderate Transfer/Bed Mobility Rolling Walker Recommended Devices Transfer Mobility Comment Squat pivot or STP with RW Current Picking Up Object Dependent Status Current Car Transfer Status Dependent Current Ambulation Assistance Dependent Status Ambulation Assistive Device Rolling Walker Ambulation Conditions Two or More Turns Current Ambulation Distance 5' Ambulation Comment with RW + WC follow Current Wheelchair Propulsion Patient Refused Ability Status Current Stair Climbing Status Not attempted Current Curb Assistance Status Not attempted Objective Comments Ampu-shield successfully remained donned throughout session. Occupational Therapy: Current Status Current Upper Body Dressing Setup or Clean-up Assist Status Current Lower Body Dressing Dependent Status Current Footwear Status Dependent Current Bathing Status Partial/Moderate Bathing Progress assist for R lower leg/foot, assist for rear pericare due to wound Current Grooming Status Setup or Clean-up Assist Current Toileting Status Dependent Current Toilet Transfer Status Dependent Toilet Transfer Progress SPT to BSC with FWW and gait belt with min-modA x 2 Current Eating Status Setup or Clean-up Assist Nursing: Current Status Skin Deviations [sacrum] Pressure Ulcer Skin Deviations [left high AKA Incision ] Skin Deviations [UK Stump] Incision Skin Deviations [Generalized] Rash Skin Deviations [Buttocks, Other groin] Skin Deviations [Right Other Anterior Thigh] Skin Deviations [Right Toe] Other Skin Deviations [Right Arm] Other Skin Deviations [Right Medial Other Ankle] Skin Deviations [Right Pressure Ulcer Buttocks] Skin Deviation Description [ optifoam changed x2 sacrum] Skin Deviation Description [ optifoam in place. open area lateral to stump left high AKA] incision Skin Deviation Description [ flat, pink rash with pruritis Generalized] dry skin Skin Deviation Description [ redness Buttocks, groin] Skin Deviation Description [ redness from statlock removal Right Anterior Thigh] Skin Deviation Description [ nails blackened Right Toe] Skin Deviation Description [ PICC line Right Arm] Skin Deviation Description [ brown rough skin patch; lotion applied Right Medial Ankle] Skin Deviation Description [ optifoam in place Right Buttocks] Rec Therapy: Current Status Summary of Assessment and Recreation Therapy assesement complete. Pt is open Clinical Impression to leisure visits but is declining formal recreation activities at this time. Pt visits with family often and enjoys having the TV on to listen to. Treatment Goals Pt will engage in leisure activities while on the unit as tolerated Treatment Plan Provide recreation therapy services and encourage involvement Social Work: Current Status Discharge Plan Return home with home care svs and family support Potential for Family Training pt's family are involved and supportive Anticipated Discharge Home Destination Anticipated Discharge needs IV antibiotics at d/c Destination Comment Discharge With home care svs and family support Nutrition: Current Status Monitoring Per 07/31 initial nutrition assessment: Visited pt and family. Pt with adequate weight, but at nutrition risk due to pressure ulcer buttocks, post op status (L AKA). Reports very good appetite although not liking food choices. Pt receiving appropriate regular diet, which also affords maximum flexibility. Provided pt encouragement and discussed alternative menu items available to maximize acceptance. Intake appears adequate to meet needs. No further specific intervention anticipated other than to continue to provide encouragement and suggest alternatives. Goals: Physical Therapy: Goals Goals to Be Accomplished in ( 10-14 Days) Goal: Rolling Assistance Supervision/Touching Goal Supine <-> Sit Status Supervision/Touching Goal Sit <-> Stand Status Supervision/Touching Goal Bed <-> Chair Status Supervision/Touching Transfer/Bed Mobility Rolling Walker Recommended Devices Goal: Picking Up Object Supervision/Touching Goal: Car Transfer Status Supervision/Touching Goal: Ambulation Assistance Supervision/Touching Ambulation Assistive Devices Rolling Walker Ambulation Distance (ft) 25' Goal: Wheelchair Propulsion Supervision/Touching Ability Wheelchair Distance (ft) 150 Goal: Stairs Assistance Partial/Moderate Number of Stairs 1 Goal: Curb Assistance Partial/Moderate Goal: Home Exercise Program Independent Assistance Occupational Therapy: Goals Goals to be Completed in (Days 7-10 ) Goal Upper Body Dressing Setup or Clean-up Assist Routine Goal Lower Body Dressing Setup or Clean-up Assist Routine Goal Footwear Status Setup or Clean-up Assist Goal Bathing Routine (OT) Setup or Clean-up Assist Goal Grooming Routine Setup or Clean-up Assist Goal Toilet Hygiene and Setup or Clean-up Assist Clothing Management Routine Goal Toilet Transfer Routine Supervision/Touching Goal Functional Transfers for Supervision/Touching ADL Goal Feeding Routine Setup or Clean-up Assist Nutrition: Goals Intervention Goals 1. Adequate oral intake to support wound healing , skin integrity, maintenance of lean body mass. 2. No further evidence of skin breakdown. Social Work: Goals Discharge Plan Return home with home care svs and family support Potential for Family Training pt's family are involved and supportive Anticipated Discharge Home Destination Anticipated Discharge needs IV antibiotics at d/c Destination Comment Discharge With home care svs and family support Care Plan: Care Plan ADL's - Improve/Maintain Start: 07/29/19 16:33 Freq: DAILY@0700,1900 Status: Active Target: 07/30/19 Protocol: Activity Type Activity Date Activity User E-Sign Co-Sign Detail Recorded Client Recorded Date Recorded By Document 08/03/19 13:13 [id number] [id number] 08/03/19 13:13 [id number] 08/03/19 13:13 PMRU Outcome: ADL's/ADL Transfers Orders/Interventions Occupational Therapy Evaluation & Treatment Communication Tool in Patient Room Device Yes Address Deficits Secondary To: s/p Left AKA Patient to receive OT 5x/wk for 60-120 Therex min/day Self Care Management Group Therapy UE/LE ADL's with Assist Yes: supervision/ setup ADL Transfers with Assist supervision/ setup Toileting: Transfers,Clothing Management supervision/ ,Hygeine w/Assist setup Progression Toward Outcome/Goals Not Progressing Lack of Progression Comment Pt participated fair in treatment session, positioning continues to be limited due to c/o pain at wound site making comfortable positioning on bedside commode difficult. Coping/Psych-Improve/Maintain Start: 07/28/19 16:44 Freq: DAILY@0700,1900 Status: Active Target: 08/07/19 Protocol: Activity Type Activity Date Activity User E-Sign Co-Sign Detail Recorded Client Recorded Date Recorded By Document 08/04/19 01:17 [id number] 08/04/19 01:17 [id number] 08/04/19 01:17 PMRU Outcome: Coping/Psychosocial Current Coping Outcome/Goals Verbalization of Acceptance of Rehab Admit Verbalization of Sense of Control Over Health Status Utilization of Appropriate Problem Solving Techniques Willingness to Participate in Treatment Plan and Basic Needs Utilization of Available Support Systems Progression Toward Outcome/Goals Progressing Current Psychosocial Outcome/Goals Maintain/ Improve Emotional Health Demonstrates Knowledge of Healthy Coping Mechanisms Available Cooperate/ Participate in Plan Progression Toward Outcome/Goals Progressing DVT Prophylaxis- Improve/Maintain Start: 07/28/19 16:44 Freq: DAILY@0700,1900 Status: Active Target: 08/07/19 Protocol: Activity Type Activity Date Activity User E-Sign Co-Sign Detail Recorded Client Recorded Date Recorded By Document 08/04/19 01:17 [id number] 08/04/19 01:17 [id number] 08/04/19 01:17 PMRU Outcome: DVT Prophylaxis Current DVT Outcome/Goals Remains Free of DVT Complies with DVT Prophylaxis /Treatment Demonstrates Knowledge of DVT Prevention/ Treatment Progression Toward Outcome/Goals Progressing Discharge Planning - Improve/Maintain Start: 07/28/19 16:44 Freq: DAILY@0700,1900 Status: Active Target: 08/07/19 Protocol: Activity Type Activity Date Activity User E-Sign Co-Sign Detail Recorded Client Recorded Date Recorded By Document 08/04/19 01:17 [id number] [email or web address] 08/04/19 01:17 [id number] 08/04/19 01:17 PMRU Outcome: Discharge Planning Update Patient Family No Current Discharge Planning Outcome/Goals Demonstrates Understanding of Discharge Plan Homecare Referral - See Comment Progression Toward Outcome/Goals Progressing Education-Improve/Maintain Start: 07/28/19 16:44 Freq: DAILY@0700,1900 Status: Active Target: 08/07/19 Protocol: Activity Type Activity Date Activity User E-Sign Co-Sign Detail Recorded Client Recorded Date Recorded By Document 08/04/19 01:17 [id number] [email or web address] 08/04/19 01:17 [id number] 08/04/19 01:17 PMRU Outcome: Education Current Education Outcome/Goals Demonstrate/ Verbalize Understanding of Written Discharge Instructions Demonstrates Skills Encourage Questions Progression Toward Outcome/Goals Progressing /GI-Improve/Maintain Start: 07/28/19 16:44 Freq: DAILY@0700,1900 Status: Active Target: 08/07/19 Protocol: Activity Type Activity Date Activity User E-Sign Co-Sign Detail Recorded Client Recorded Date Recorded By Document 08/04/19 01:17 [id number] [email or web address] 08/04/19 01:17 [id number] 08/04/19 01:17 PMRU Outcome: Genitourinary/ Gastrointestinal Current Gastrointestinal Outcome/Goals Maintain/ Achieve Bowel Regularity in Accordance with Pt's Baseline Remain Free of Emesis Prevent Constipation Bowel Regularity at Home Laxatives as Ordered Progression Toward Outcome/Goals Progressing Current Genitourinary Outcome/Goals Maintain/ Achieve Urinary Continence Maintain/ Achieve Adequate Urinary Output Remain Free of Hospital- Acquired UTI Progression Toward Outcome/Goals Not Progressing Lack of Progression Comment evans in place Medication Administration Start: 07/28/19 16:44 Freq: DAILY@0700,1900 Status: Active Target: 08/07/19 Protocol: Activity Type Activity Date Activity User E-Sign Co-Sign Detail Recorded Client Recorded Date Recorded By Document 08/04/19 01:17 [id number] 08/04/19 01:17 [id number] 08/04/19 01:17 PMRU Outcome: Medication Administration Assess Patient Knowledge/Teach Med Yes Education for all Meds Current Stylist Assistant Outcome/Goals Family/ Caregiver Administer Medications at Home Demonstrates Understanding Progression Towards Outcome/Goals Progressing Is Patient Going Home on Lovenox? No Mobility- Improve/Maintain Start: 07/29/19 18:36 Freq: DAILY@0700,1899 Status: Active Target: 07/30/19 Protocol: Activity Type Activity Date Activity User E-Sign Co-Sign Detail Recorded Client Recorded Date Recorded By Document 08/03/19 16:10 [id number] 08/03/19 16:10 [id number] 08/03/19 16:10 PMRU Outcome: Mobility Physical Therapy Evaluation and Yes Treatment Activity OOB with Assistance Yes WBAT No NWB Yes TTWB No Device Yes Assistance Yes Patient to be seen 5x/wk for 60-120 min/ Therex day for: Mobility Training Gait Training W/C Mobility Balance Other Other Therapy Comment discharge training, discharge planning Current Mobility Outcome/Goals Improve Mobility Status Demonstrates Proper Use of Assistive Devices Progression Toward Outcome/Goals Progressing Bed Mobility Yes: independent Transfers Yes: independent with RW Gait x ft Yes: supervision with RW, 25' W/C Mobility x ft Yes: 150' independent Up/Down Stairs Yes: 1 step with RW and min Ax1 With HEP Yes: independent Pain/Comfort- Improve/Maintain Start: 07/28/19 16:44 Freq: DAILY@0700,1900 Status: Active Target: 08/07/19 Protocol: Activity Type Activity Date Activity User E-Sign Co-Sign Detail Recorded Client Recorded Date Recorded By Document 08/04/19 01:17 [id number] [id number] 08/04/19 01:17 [id number] 08/04/19 01:17 PMRU Outcome: Pain/Comfort Current Pain/Comfort Outcome/Goals Demonstrates Knowledge and Use of Available Comfort Measures Achieves Acceptable Comfort/Pain Level as Determined by Patient/Condit Maintain Comfort Level Allowing Patient to Fully Participate in Rehab Progression Toward Outcome/Goals Progressing Outcome/Goals Met Comment pt resting Rec Therapy- Improve/Maintain Start: 07/29/19 14:18 Freq: DAILY@0700,1900 Status: Active Target: 08/04/19 Protocol: Activity Type Activity Date Activity User E-Sign Co-Sign Detail Recorded Client Recorded Date Recorded By Document 08/03/19 13:28 [id number] [email or web address] 08/03/19 13:35 [id number] 08/03/19 13:28 PMRU Outcome: Recreation Therapy Current Rec Ther Outcome/Goals Complete Rec Therapy Assessment Meet with Patient Regularly for Support Encourage Leisure Involvement Progression Toward Outcome/Goals Progressing Lack of Progression Comment Provided pt with leisure visits, pt somewhat engaged in conversations, answering questions. Pt reports enjoying having the [employer] TV on. Pt has family in to visit with him often. Declined needing any other recreation materials. Outcome/Goals Met Complete Rec Therapy Assessment Outcome/Goals Met Comment Recreation Therapy assessment complete Safety- Improve/Maintain Start: 07/28/19 14:57 Freq: DAILY@0700,1900 Status: Active Target: 08/07/19 Protocol: Activity Type Activity Date Activity User E-Sign Co-Sign Detail Recorded Client Recorded Date Recorded By Document 08/04/19 01:17 [id number] [id number] 08/04/19 01:17 [id number] 08/04/19 01:17 PMRU Outcome: Safety Current Safety Outcome/Goals Remain Free of Injury or Harm Cooperates with Safety Measures for Least Restrictive Environment Prevent Falls/ Injury Progression Toward Outcome/Goals Progressing Skin- Improve/Maintain Start: 07/28/19 16:44 Freq: DAILY@0700,1900 Status: Active Target: 08/07/19 Protocol: Activity Type Activity Date Activity User E-Sign Co-Sign Detail Recorded Client Recorded Date Recorded By Document 08/04/19 01:17 [id number] [email or web address] 08/04/19 01:17 [id number] 08/04/19 01:17 PMRU Outcome: Skin Skin Risk Level Very High Risk Skin Orders Dressing Change Turn/Position q2hr While in Bed Skin Orders Comment optifoam to sacral wound Current Skin Outcome/Goals Maintain/ Improve Skin Integrity Maintain/ Improve Wound Status Surgical Incisions Healing Progression Toward Outcome/Goals Progressing - Interdisciplinary Staff Present Merchandising Manager/Social Work Staff Present: Mercy Benavidez LMSW Nursing Staff Present: Leelee Patiño, RN OT Staff Present: Yun Vargas PT Staff Present: Sinai Tidwell Rec Therapy Staff Present: Saray Sterling [employer] AND CTO Staff Present: Venkat Anand Medicine Note: Length of Stay: 1 week Anticipated Discharge Destination: Home Tentative Discharge Date: 08/11/19 Discharged to: Home
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
[2019-08-04] MEDS: Collagenase 250 UNITS/GM OINT* 1 APPLIC OINT TOPICAL SCH (18:50)
--- NOTE | 2019-08-04 19:56 | PN ---
Progress Note Date of Service: 08/04/19 Note: GAMALIEL FRIAS was visited. Therapy notes read and reviewed. He was discussed in interdisciplinary team rounds. His evans is out but he has not been able to urinate. Not uncomfortable. Current Medications: Active Medications Generic Name Dose Route Start Last Admin Trade Name Freq PRN Reason Stop Dose Admin Acetaminophen 650 mg 07/28/19 16:22 Tylenol Tab* PO Q6H PRN MILD PAIN or TEMP > 100.4 Hydrocodone Bitart/Acetaminophen 1 tab 08/03/19 14:03 08/04/19 18:59 [place] 5-325 Tab* PO 1 tab Q4H PRN Administration PAIN - MODERATE Collagenase 1 applic 08/04/19 15:00 08/04/19 18:50 Santyl 250 Units/Gm Oint* TOPICAL 1 applic DAILY CHERRY Administration Diphenhydramine HCl 25 mg 08/03/19 17:00 08/03/19 21:10 Benadryl Po* PO 25 mg Q6H PRN Administration ITCHING Docusate Sodium 100 mg 07/28/19 21:00 08/04/19 09:39 Colace Cap* PO Not Given BID CHERRY Heparin Sodium (Porcine) 1 ml 07/29/19 06:00 08/04/19 18:22 Heparin Flush Picc/Ml/Cvc(*) FLUSH 1 ml 0600,1800 CHERRY Administration Protocol Heparin Sodium (Porcine) 5,000 units 07/28/19 21:00 08/04/19 09:30 Heparin Vial(*) SUBCUT 5,000 units Q12HR CHERRY Administration Cefazolin Sodium 2 gm in 100 mls @ 200 mls/hr 07/31/19 13:00 08/04/19 13:14 Kefzol 2 Gm In Ns Premix(*) IVPB 200 mls/hr Q8H CHERRY Administration Lactobacillus Rhamnosus 1 tab 07/30/19 21:00 08/04/19 09:30 Lactobacillus Acidophilus* PO 1 tab BID CHERRY Administration Magnesium Hydroxide 30 ml 07/28/19 16:22 Milk Of Magnesia Liq* PO Q6H PRN CONSTIPATION Senna 2 tab 07/28/19 16:22 Senokot 8.6 Mg Tab* PO BEDTIME PRN CONSTIPATION Tramadol HCl 50 mg 07/31/19 18:53 08/02/19 22:40 Ultram* PO 50 mg Q6H PRN Administration PAIN - MODERATE Vital Signs: Vital Signs Temp Pulse Resp BP Pulse Ox 97.9 F 86 16 106/51 96 08/04/19 14:44 08/04/19 14:44 08/04/19 18:59 08/04/19 14:44 08/04/19 05:00 Exam: GENERAL: In no distress LUNGS: Clear bilaterally HEART: Regular rhythm ABDOMEN: Soft EXTREMITIES: Left AKA, stump in ampu-shield NEUROLOGIC: Sensation intact in RLE. Moves UE and RLE with 5/5 strength. Hip flx on left at least 4 SKIN: 3 x 3 debrided wound looks clean on posterior thigh. Sacral ulcer healing Assessment/Plan: 1. Left above the knee amputation: PT/OT. Ampu shield at all times except for skin check; it is falling off when he tries to stand. Follow up with surgeon Saturday 2. Extensive osteomyelitis: Ancef 2 gm IV Q8H x 21 more days 3. Urethral Stricture: Evans out, will see if he can void 4. Cataracts: Optho follow up after d/c 5. DVT Prophylaxis: Heparin S/Q 6. Advanced Directives: Full Code 7. Sacral pressure ulcer: Zinc Oxide, optifoam. Will ask for a wound care consult 8. Nicotine Addiction: Refuses patch or nicotine gum. 08/04/19 19:57
[2019-08-04] MEDS: traMADol TAB* 50 MG PO PRN (21:43)
[2019-08-04] MEDS: diPHENhydraMINE PO* 25 MG PO PRN (21:45)
[2019-08-05] MEDS: ceFAZolin 2 GM in NS PREMIX(*) 2 GM/100 ML BAG IVPB SCH (05:25)
[2019-08-05 05:42] LABS: ABS Basophils 0.1 10^3/ul (0-0.2); ABS Eosinophils 0.4 10^3/ul (0-0.6); ABS Lymphocytes 2.1 10^3/ul (1.0-4.8); ABS Monocytes 0.6 10^3/ul (0-0.8); ABS Neutrophils 3.3 10^3/ul (1.5-7.7); Eosinophil % 6.7 %; Hematocrit 35 % (42-52); Hemoglobin 11.6 g/dL (14.0-18.0); Lymphocyte % 32.1 %; Mean Corpuscular HGB Conc 33 g/dL (31-36); Mean Corpuscular Hemoglobin 29 pg (27-31); Mean Corpuscular Volume 87 fL (80-94); Mean Platelet Volume 8.6 fL (7.4-10.4); Platelet Count 311 10^3/uL (150-450); Red Blood Count 4.01 10^6 /uL (4.18-5.48); Red Cell Distribution Width 20 % (10-15); White Blood Count 6.6 10^3/uL (3.5-10.8)
[2019-08-05 06:02] LABS: ALT < 3 U/L (7-52); AST 13 U/L (13-39); Albumin 2.4 g/dL (3.2-5.2); Albumin/Globulin Ratio 0.8 (1-3); Alkaline Phosphatase 79 U/L (34-104); Anion Gap 5 mmol/L (2-11); BUN/Creatinine Ratio 9.3 (8-20); Blood Urea Nitrogen 9 mg/dL (6-24); C Reactive Protein 32.63 mg/L (<8.01); CO2 Carbon Dioxide 31 mmol/L (22-32); Calcium 9.1 mg/dL (8.6-10.3); Chloride 101 mmol/L (101-111); EGFR African American 96.2 (>60); EGFR Non-African American 79.5 (>60); Glucose 76 mg/dL (70-100); Potassium 3.6 mmol/L (3.5-5.0); Sodium 137 mmol/L (135-145); Total Protein 5.4 g/dL (6.4-8.9)
[2019-08-05 07:57] LABS: Erythrocyte Sed Rate 39 mm/Hr (0-19)
[2019-08-05] MEDS: Lactobacillus Acidophilus* 1 TAB PO SCH ×2 (08:30→20:28)
[2019-08-05] MEDS: Heparin VIAL(*) 5000 UNITS/ML VIAL (FIVE THOUSAND) SUBCUT SCH ×2 (08:31→20:46)
[2019-08-05] MEDS: Docusate CAP* 100 MG PO SCH ×2 (08:35→20:46)
[2019-08-05] MEDS: HYDROcodone/ACETAMIN 5-325 MG* 1 TAB PO PRN (08:44)
[2019-08-05] MEDS: Collagenase 250 UNITS/GM OINT* 1 APPLIC OINT TOPICAL SCH (09:34)
[2019-08-05] MEDS: ceFAZolin 2 GM PREMIX in ORs 2 GM/50 ML BAG IVPB SCH ×2 (12:53→20:46)
[2019-08-05 17:09] LABS: Urine Appearance Cloudy; Urine Bilirubin Negative (Negative); Urine Blood 1+ (Negative); Urine Color Yellow; Urine Glucose Negative (Negative); Urine Ketones Negative (Negative); Urine Nitrite Negative (Negative); Urine Protein Negative (Negative); Urine Specific Gravity 1.011 (1.010-1.030); Urine Urobilinogen Negative (Negative)
[2019-08-05 17:17] LABS: Urine Bacteria Absent (Absent); Urine Red Blood Cell 1+(3-5/hpf) (Absent); Urine White Blood Cell 3+(>20/hpf) (Absent)
--- NOTE | 2019-08-05 18:05 | PN ---
Progress Note Date of Service: 08/05/19 Note: GAMALIEL FRIAS was visited. Therapy notes read and reviewed. He was unable to void and after 24 hours was straight cathed. He was still unable to void after that. Have replaced evans. Current Medications: Active Medications Generic Name Dose Route Start Last Admin Trade Name Freq PRN Reason Stop Dose Admin Acetaminophen 650 mg 07/28/19 16:22 Tylenol Tab* PO Q6H PRN MILD PAIN or TEMP > 100.4 Hydrocodone Bitart/Acetaminophen 1 tab 08/03/19 14:03 08/05/19 08:44 [place] 5-325 Tab* PO 1 tab Q4H PRN Administration PAIN - MODERATE Collagenase 1 applic 08/04/19 15:00 08/05/19 09:34 Santyl 250 Units/Gm Oint* TOPICAL 1 applic DAILY CHERRY Administration Diphenhydramine HCl 25 mg 08/03/19 17:00 08/04/19 21:45 Benadryl Po* PO 25 mg Q6H PRN Administration ITCHING Docusate Sodium 100 mg 07/28/19 21:00 08/05/19 08:35 Colace Cap* PO Not Given BID CHERRY Heparin Sodium (Porcine) 1 ml 07/29/19 06:00 08/05/19 16:28 Heparin Flush Picc/Ml/Cvc(*) FLUSH Not Given 0600,1800 [facility] Protocol Heparin Sodium (Porcine) 5,000 units 07/28/19 21:00 08/05/19 08:31 Heparin Vial(*) SUBCUT 5,000 units Q12HR CHERRY Administration Cefazolin Sodium/Dextrose 2 gm in 50 mls @ 100 mls/hr 08/05/19 13:00 12:53 Kefzol 2 Gm Premix In Ors(*) IVPB 100 mls/hr Q8H CHERRY Administration Lactobacillus Rhamnosus 1 tab 07/30/19 21:00 08/05/19 08:30 Lactobacillus Acidophilus* PO 1 tab BID CHERRY Administration Magnesium Hydroxide 30 ml 07/28/19 16:22 Milk Of Magnesia Liq* PO Q6H PRN CONSTIPATION Senna 2 tab 07/28/19 16:22 Senokot 8.6 Mg Tab* PO BEDTIME PRN CONSTIPATION Tramadol HCl 50 mg 07/31/19 18:53 08/04/19 21:43 Ultram* PO 50 mg Q6H PRN Administration PAIN - MODERATE Vital Signs: Vital Signs Temp Pulse Resp BP Pulse Ox 98.0 F 94 16 114/62 97 08/05/19 15:50 08/05/19 15:50 08/05/19 15:50 08/05/19 15:50 08/05/19 15:50 Lab Results: Laboratory Results - last 24 hr 08/05/19 08/05/19 08/05/19 05:10 05:10 16:20 WBC 6.6 RBC 4.01 L Hgb 11.6 L Hct 35 L MCV 87 MCH 29 MCHC 33 RDW 20 H Plt Count 311 MPV 8.6 Neut % (Auto) 49.9 Lymph % (Auto) 32.1 [place] % (Auto) 9.7 Eos % (Auto) 6.7 Baso % (Auto) 1.6 Absolute Neuts (auto) 3.3 Absolute Lymphs (auto) 2.1 Absolute Monos (auto) 0.6 Absolute Eos (auto) 0.4 Absolute Basos (auto) 0.1 Absolute Nucleated RBC 0.0 Nucleated RBC % 0.0 ESR 39 H Sodium 137 Potassium 3.6 Chloride 101 Carbon Dioxide 31 Anion Gap 5 BUN 9 Creatinine 0.97 Est GFR ( Amer) 96.2 Est GFR (Non-Af Amer) 79.5 BUN/Creatinine Ratio 9.3 Glucose 76 Calcium 9.1 Total Bilirubin 0.20 AST 13 ALT < 3 L Alkaline Phosphatase 79 C-Reactive Protein 32.63 H Total Protein 5.4 L Albumin 2.4 L Globulin 3.0 Albumin/Globulin Ratio 0.8 L Urine Color Yellow Urine Appearance Cloudy Urine pH 7.0 Ur Specific [place] 1.011 Urine Protein Negative Urine Ketones Negative Urine Blood 1+ A Urine Nitrate Negative Urine Bilirubin Negative Urine Urobilinogen Negative Ur Leukocyte Esterase 2+ A Urine WBC (Auto) 3+(>20/hpf) A Urine RBC (Auto) 1+(3-5/hpf) A Urine Bacteria Absent Urine Glucose Negative Exam: GENERAL: In no distress LUNGS: Clear bilaterally HEART: Regular rhythm ABDOMEN: Soft EXTREMITIES: Left AKA, suture line clean NEUROLOGIC: Sensation intact in RLE. Moves UE and RLE with 5/5 strength. Hip flx on left at least 4 SKIN: 3 x 3 debrided wound looks clean on posterior thigh. Sacral ulcer healing Assessment/Plan: 1. Left above the knee amputation: PT/OT. Ampu shield at all times except for skin check; it is falling off when he tries to stand. Follow up with surgeon Saturday 2. Extensive osteomyelitis: Ancef 2 gm IV Q8H x 20 more days 3. Urethral Stricture: Evans in, could not void 4. Cataracts: Optho follow up after d/c 5. DVT Prophylaxis: Heparin S/Q 6. Advanced Directives: Full Code 7. Sacral pressure ulcer: Zinc Oxide, optifoam. Will ask for a wound care consult 8. Nicotine Addiction: Refuses patch or nicotine gum. 08/05/19 18:06
[2019-08-05] MEDS: traMADol TAB* 50 MG PO PRN (20:28)
[2019-08-06] MEDS: HYDROcodone/ACETAMIN 5-325 MG* 1 TAB PO PRN ×3 (02:38→18:03)
[2019-08-06] MEDS: ceFAZolin 2 GM PREMIX in ORs 2 GM/50 ML BAG IVPB SCH ×3 (04:46→21:50)
[2019-08-06] MEDS: Heparin VIAL(*) 5000 UNITS/ML VIAL (FIVE THOUSAND) SUBCUT SCH ×2 (09:49→21:50)
[2019-08-06] MEDS: Docusate CAP* 100 MG PO SCH ×2 (09:52→21:50)
[2019-08-06] MEDS: Lactobacillus Acidophilus* 1 TAB PO SCH ×2 (09:52→21:51)
[2019-08-06] MEDS: Collagenase 250 UNITS/GM OINT* 1 APPLIC OINT TOPICAL SCH (09:52)
[2019-08-06] MEDS: traMADol TAB* 50 MG PO PRN ×2 (12:50→21:51)
--- NOTE | 2019-08-06 20:05 | PN ---
Progress Note Date of Service: 08/06/19 Note: GAMALIEL FRIAS was visited. Therapy notes read and reviewed. He has been complaining of stump pain. He is disappointed that he has a evans. Current Medications: Active Medications Generic Name Dose Route Start Last Admin Trade Name Freq PRN Reason Stop Dose Admin Acetaminophen 650 mg 07/28/19 16:22 Tylenol Tab* PO Q6H PRN MILD PAIN or TEMP > 100.4 Hydrocodone Bitart/Acetaminophen 1 tab 08/03/19 14:03 08/06/19 18:03 [place] 5-325 Tab* PO 1 tab Q4H PRN Administration PAIN - MODERATE Collagenase 1 applic 08/04/19 15:00 08/06/19 09:52 Santyl 250 Units/Gm Oint* TOPICAL 1 applic DAILY CHERRY Administration Diphenhydramine HCl 25 mg 08/03/19 17:00 08/04/19 21:45 Benadryl Po* PO 25 mg Q6H PRN Administration ITCHING Docusate Sodium 100 mg 07/28/19 21:00 08/06/19 09:52 Colace Cap* PO Not Given BID CHERRY Gabapentin 100 mg 08/06/19 21:00 Neurontin Cap(*) PO BID CHERRY Heparin Sodium (Porcine) 1 ml 07/29/19 06:00 08/06/19 18:01 Heparin Flush Picc/Ml/Cvc(*) FLUSH Not Given 0600,1800 [facility] Protocol Heparin Sodium (Porcine) 5,000 units 07/28/19 21:00 08/06/19 09:49 Heparin Vial(*) SUBCUT 5,000 units Q12HR CHERRY Administration Cefazolin Sodium/Dextrose 2 gm in 50 mls @ 100 mls/hr 08/05/19 13:00 12:42 Kefzol 2 Gm Premix In Ors(*) IVPB 100 mls/hr Q8H CHERRY Administration Lactobacillus Rhamnosus 1 tab 07/30/19 21:00 08/06/19 09:52 Lactobacillus Acidophilus* PO 1 tab BID CHERRY Administration Magnesium Hydroxide 30 ml 07/28/19 16:22 Milk Of Magnesia Liq* PO Q6H PRN CONSTIPATION Senna 2 tab 07/28/19 16:22 Senokot 8.6 Mg Tab* PO BEDTIME PRN CONSTIPATION Tramadol HCl 50 mg 07/31/19 18:53 08/06/19 12:50 Ultram* PO 50 mg Q6H PRN Administration PAIN - MODERATE Vital Signs: Vital Signs Temp Pulse Resp BP Pulse Ox 98 F 85 16 106/55 98 08/06/19 15:07 08/06/19 15:07 08/06/19 18:03 08/06/19 15:07 08/06/19 15:07 Exam: GENERAL: In no distress LUNGS: Clear bilaterally HEART: Regular rhythm ABDOMEN: Soft EXTREMITIES: Left AKA, suture line clean NEUROLOGIC: Sensation intact in RLE. Moves UE and RLE with 5/5 strength. Hip flx on left at least 4 SKIN: 3 x 3 debrided wound looks clean on posterior thigh. Sacral ulcer healing Assessment/Plan: 1. Left above the knee amputation: PT/OT. Ampu shield falling off when he tries to stand. Follow up with surgeon Saturday 2. Extensive osteomyelitis: Ancef 2 gm IV Q8H x 19 more days 3. Urethral Stricture: Evans in, could not void 4. Cataracts: Optho follow up after d/c 5. DVT Prophylaxis: Heparin S/Q 6. Advanced Directives: Full Code 7. Sacral pressure ulcer: Santyl. Improving 8. Nicotine Addiction: Refuses patch or nicotine gum. 08/06/19 20:05 08/06/19 20:06
[2019-08-06] MEDS: Gabapentin CAP(*) 100 MG PO SCH (21:50)
[2019-08-07] MEDS: ceFAZolin 2 GM PREMIX in ORs 2 GM/50 ML BAG IVPB SCH ×3 (04:55→21:02)
[2019-08-07] MEDS: Docusate CAP* 100 MG PO SCH ×2 (09:03→21:09)
[2019-08-07] MEDS: Lactobacillus Acidophilus* 1 TAB PO SCH ×2 (09:09→21:09)
[2019-08-07] MEDS: Gabapentin CAP(*) 100 MG PO SCH ×2 (09:12→21:07)
[2019-08-07] MEDS: Heparin VIAL(*) 5000 UNITS/ML VIAL (FIVE THOUSAND) SUBCUT SCH ×2 (09:13→21:09)
[2019-08-07] MEDS: HYDROcodone/ACETAMIN 5-325 MG* 1 TAB PO PRN ×2 (09:13→21:08)
[2019-08-07] MEDS: Collagenase 250 UNITS/GM OINT* 1 APPLIC OINT TOPICAL SCH ×2 (09:23→22:21)
--- NOTE | 2019-08-07 10:33 | PN ---
Progress Note Date of Service: 08/07/19 Note: GAMALIEL FRIAS was visited. Nursing and therapy notes read and reviewed. No chest pain, shortness of breath or abdominal pain. He is upset he needs to go to [place] for f/u this afternoon. Current Medications: Active Medications Generic Name Dose Route Start Last Admin Trade Name Freq PRN Reason Stop Dose Admin Acetaminophen 650 mg 07/28/19 16:22 Tylenol Tab* PO Q6H PRN MILD PAIN or TEMP > 100.4 Hydrocodone Bitart/Acetaminophen 1 tab 08/03/19 14:03 08/07/19 09:13 [place] 5-325 Tab* PO 1 tab Q4H PRN Administration PAIN - MODERATE Collagenase 1 applic 08/04/19 15:00 08/07/19 09:23 Santyl 250 Units/Gm Oint* TOPICAL 1 applic DAILY CHERRY Administration Diphenhydramine HCl 25 mg 08/03/19 17:00 08/04/19 21:45 Benadryl Po* PO 25 mg Q6H PRN Administration ITCHING Docusate Sodium 100 mg 07/28/19 21:00 08/07/19 09:03 Colace Cap* PO Not Given BID CHERRY Gabapentin 100 mg 08/06/19 21:00 08/07/19 09:12 Neurontin Cap(*) PO 100 mg BID CHERRY Administration Heparin Sodium (Porcine) 1 ml 07/29/19 06:00 08/07/19 05:45 Heparin Flush Picc/Ml/Cvc(*) FLUSH 1 ml 0600,1800 CHERRY Administration Protocol Heparin Sodium (Porcine) 5,000 units 07/28/19 21:00 08/07/19 09:13 Heparin Vial(*) SUBCUT 5,000 units Q12HR CHERRY Administration Cefazolin Sodium/Dextrose 2 gm in 50 mls @ 100 mls/hr 08/05/19 13:00 04:55 Kefzol 2 Gm Premix In Ors(*) IVPB 100 mls/hr Q8H CHERRY Administration Lactobacillus Rhamnosus 1 tab 07/30/19 21:00 08/07/19 09:09 Lactobacillus Acidophilus* PO 1 tab BID CHERRY Administration Magnesium Hydroxide 30 ml 07/28/19 16:22 Milk Of Magnesia Liq* PO Q6H PRN CONSTIPATION Senna 2 tab 07/28/19 16:22 Senokot 8.6 Mg Tab* PO BEDTIME PRN CONSTIPATION Tramadol HCl 50 mg 07/31/19 18:53 08/06/19 21:51 Ultram* PO 50 mg Q6H PRN Administration PAIN - MODERATE Vital Signs: Vital Signs Temp Pulse Resp BP Pulse Ox 98.0 F 95 16 100/59 95 08/07/19 05:00 08/07/19 05:00 08/07/19 09:13 08/07/19 05:00 08/07/19 05:00 Exam: GENERAL: No acute distress. Alert and appropriate. LUNGS: Clear to auscultation bilaterally HEART: Regular rate and rhythm ABDOMEN: Soft, non-tender, non-distended, + bowel sounds EXTREMITIES: Left AKA, suture line clean NEUROLOGIC: Sensation intact in RLE. Moves UE and RLE with 5/5 strength. Hip flexion on left at least 4/5. SKIN: 3 x 3 debrided wound on posterior thigh with granulating tissue. Sacral ulcer clean with denuded skin. Assessment/Plan: 1. Left above the knee amputation: PT/OT. Ampu shield falling off when he tries to stand and is not being used. Follow up with surgeon today in [place]. Question if construction services technician appropriate, but posterior thigh wound may limit this. 2. Extensive osteomyelitis: Ancef 2 gm IV Q8H x 18 more days 3. Urethral Stricture: Valladares in, could not void. Will need urology f/u after d/ c. 4. Cataracts: Optho follow up after d/c 5. DVT Prophylaxis: Heparin S/Q 6. Advanced Directives: Full Code 7. Sacral pressure ulcer: Santyl. Mother instructed in dressing changes. 8. Nicotine Addiction: Refuses patch or nicotine gum. 9. Estimated LOS: 08/11/19. 08/07/19 10:31
[2019-08-07] MEDS: traMADol TAB* 50 MG PO PRN (13:46)
[2019-08-08] MEDS: ceFAZolin 2 GM PREMIX in ORs 2 GM/50 ML BAG IVPB SCH ×3 (04:49→21:05)
[2019-08-08] MEDS: Gabapentin CAP(*) 100 MG PO SCH ×2 (08:25→20:54)
[2019-08-08] MEDS: Docusate CAP* 100 MG PO SCH ×2 (08:26→20:52)
[2019-08-08] MEDS: Lactobacillus Acidophilus* 1 TAB PO SCH ×2 (08:27→20:54)
[2019-08-08] MEDS: HYDROcodone/ACETAMIN 5-325 MG* 1 TAB PO PRN ×4 (08:27→21:57)
[2019-08-08] MEDS: Heparin VIAL(*) 5000 UNITS/ML VIAL (FIVE THOUSAND) SUBCUT SCH ×2 (08:29→20:52)
[2019-08-08] MEDS ORDERED: Calcium Carbonate CHEW TAB* 500 MG (TUMS) PO PRN (09:52)
--- NOTE | 2019-08-08 10:55 | PN ---
Progress Note Date of Service: 08/08/19 Note: GAMALIEL FRIAS was visited. Nursing and therapy notes read and reviewed. He had an uneventful trip to [place] yesterday. No notes returned with him, but he said his dressing to the stump was changed and does not need to be changed again until Saturday or the following Saturday (08/18) when he will f/u with [facility] in [place]. No chest pain, shortness of breath or abdominal pain. He continues to request d/c on rather than Saturday. His mother has been coming in for training. Current Medications: Active Medications Generic Name Dose Route Start Last Admin Trade Name Freq PRN Reason Stop Dose Admin Acetaminophen 650 mg 07/28/19 16:22 Tylenol Tab* PO Q6H PRN MILD PAIN or TEMP > 100.4 Hydrocodone Bitart/Acetaminophen 1 tab 08/03/19 14:03 08/08/19 08:27 [place] 5-325 Tab* PO 1 tab Q4H PRN Administration PAIN - MODERATE Calcium Carbonate 500 mg 08/08/19 09:52 Tums* PO Q4H PRN INDIGESTION Collagenase 1 applic 08/04/19 15:00 08/07/19 22:21 Santyl 250 Units/Gm Oint* TOPICAL 1 applic DAILY CHERRY Administration Diphenhydramine HCl 25 mg 08/03/19 17:00 08/04/19 21:45 Benadryl Po* PO 25 mg Q6H PRN Administration ITCHING Docusate Sodium 100 mg 07/28/19 21:00 08/08/19 08:26 Colace Cap* PO Not Given BID CHERRY Gabapentin 100 mg 08/06/19 21:00 08/08/19 08:25 Neurontin Cap(*) PO 100 mg BID CHERRY Administration Heparin Sodium (Porcine) 1 ml 07/29/19 06:00 08/08/19 05:45 Heparin Flush Picc/Ml/Cvc(*) FLUSH 1 ml 0600,1800 [facility] Administration Protocol Heparin Sodium (Porcine) 5,000 units 07/28/19 21:00 08/08/19 08:29 Heparin Vial(*) SUBCUT 5,000 units Q12HR CHERRY Administration Cefazolin Sodium/Dextrose 2 gm in 50 mls @ 100 mls/hr 08/05/19 13:00 04:49 Kefzol 2 Gm Premix In Ors(*) IVPB 100 mls/hr Q8H CHERRY Administration Lactobacillus Rhamnosus 1 tab 07/30/19 21:00 08/08/19 08:27 Lactobacillus Acidophilus* PO 1 tab BID CHERRY Administration Magnesium Hydroxide 30 ml 07/28/19 16:22 Milk Of Magnesia Liq* PO Q6H PRN CONSTIPATION Senna 2 tab 07/28/19 16:22 Senokot 8.6 Mg Tab* PO BEDTIME PRN CONSTIPATION Tramadol HCl 50 mg 07/31/19 18:53 08/07/19 13:46 Ultram* PO 50 mg Q6H PRN Administration PAIN - MODERATE Vital Signs: Vital Signs Temp Pulse Resp BP Pulse Ox 98.1 F 91 20 110/61 98 08/08/19 05:02 08/08/19 05:02 08/08/19 08:27 08/08/19 05:02 08/08/19 08:00 Exam: GENERAL: No acute distress. Alert and appropriate. LUNGS: Clear to auscultation bilaterally HEART: Regular rate and rhythm ABDOMEN: Soft, non-tender, non-distended, + bowel sounds EXTREMITIES: Left AKA, suture line that is visible is clean NEUROLOGIC: Sensation intact in RLE. Moves UE and RLE with 5/5 strength. Hip flexion on left at least 4/5. SKIN: Dressings in place from 08/07. Assessment/Plan: 1. Left above the knee amputation: PT/OT. Ampu shield falling off when he tries to stand and is not being used. Follow up with surgical services on 08/18. On Saturday see if staff can get report from [facility] from 08/07 visit. 2. Extensive osteomyelitis: Ancef 2 gm IV Q8H x 17 more days. [facility] will not cover home IV Abx. His family is willing to bring him to the hospital for IV outpatient infusion if he gets on a daily antibiotic or question if can switch to oral. I spoke to Dr. Gong 08/07 and he will consult on Saturday. 3. Urethral Stricture: Valladares in, could not void. Will need urology f/u after d/ c. 4. Cataracts: Optho follow up after d/c 5. DVT Prophylaxis: Heparin S/Q 6. Advanced Directives: Full Code 7. Sacral pressure ulcer and left posterior thigh wound: Change to barrier cream and telfa at gluteal fold daily. Change to optifoam on posterior thigh Q3d. Mother instructed in dressing changes. 8. Nicotine Addiction: Refuses patch or nicotine gum. 9. Estimated LOS: I d/w therapists yesterday and Dr. Holt. Will change d/c to 08/13. 08/08/19 10:50
[2019-08-08] MEDS: Collagenase 250 UNITS/GM OINT* 1 APPLIC OINT TOPICAL SCH (11:38)
[2019-08-08] MEDS: traMADol TAB* 50 MG PO PRN (20:54)
[2019-08-09] MEDS: HYDROcodone/ACETAMIN 5-325 MG* 1 TAB PO PRN ×4 (03:29→20:18)
[2019-08-09] MEDS: ceFAZolin 2 GM PREMIX in ORs 2 GM/50 ML BAG IVPB SCH ×3 (05:54→21:05)
[2019-08-09] MEDS: Gabapentin CAP(*) 100 MG PO SCH ×2 (08:39→20:18)
[2019-08-09] MEDS: Lactobacillus Acidophilus* 1 TAB PO SCH ×2 (08:40→20:18)
[2019-08-09] MEDS: Heparin VIAL(*) 5000 UNITS/ML VIAL (FIVE THOUSAND) SUBCUT SCH ×2 (08:41→21:05)
[2019-08-09] MEDS: Docusate CAP* 100 MG PO SCH (08:47)
[2019-08-09] MEDS ORDERED: Docusate CAP* 100 MG PO PRN (09:07)
[2019-08-09] MEDS: traMADol TAB* 50 MG PO PRN ×2 (10:28→22:36)
--- NOTE | 2019-08-09 10:28 | PN ---
Progress Note Date of Service: 08/09/19 Note: GAMALIEL FRIAS was visited. Nursing notes read and reviewed. No chest pain, shortness of breath or abdominal pain. Current Medications: Active Medications Generic Name Dose Route Start Last Admin Trade Name Freq PRN Reason Stop Dose Admin Acetaminophen 650 mg 07/28/19 16:22 Tylenol Tab* PO Q6H PRN MILD PAIN or TEMP > 100.4 Hydrocodone Bitart/Acetaminophen 1 tab 08/03/19 14:03 08/09/19 08:39 [place] 5-325 Tab* PO 1 tab Q4H PRN Administration PAIN - MODERATE Calcium Carbonate 500 mg 08/08/19 09:52 Tums* PO Q4H PRN INDIGESTION Collagenase 1 applic 08/04/19 15:00 08/08/19 11:38 Santyl 250 Units/Gm Oint* TOPICAL 1 applic DAILY CHERRY Administration Diphenhydramine HCl 25 mg 08/03/19 17:00 08/04/19 21:45 Benadryl Po* PO 25 mg Q6H PRN Administration ITCHING Docusate Sodium 100 mg 08/09/19 09:07 Colace Cap* PO BID PRN CONSTIPATION Gabapentin 100 mg 08/06/19 21:00 08/09/19 08:39 Neurontin Cap(*) PO 100 mg BID CHERRY Administration Heparin Sodium (Porcine) 1 ml 07/29/19 06:00 08/09/19 06:43 Heparin Flush Picc/Ml/Cvc(*) FLUSH 1 ml 0600,1800 [facility] Administration Protocol Heparin Sodium (Porcine) 5,000 units 07/28/19 21:00 08/09/19 08:41 Heparin Vial(*) SUBCUT 5,000 units Q12HR CHERRY Administration Cefazolin Sodium/Dextrose 2 gm in 50 mls @ 100 mls/hr 08/05/19 13:00 05:54 Kefzol 2 Gm Premix In Ors(*) IVPB 100 mls/hr Q8H CHERRY Administration Lactobacillus Rhamnosus 1 tab 07/30/19 21:00 08/09/19 08:40 Lactobacillus Acidophilus* PO 1 tab BID CHERRY Administration Magnesium Hydroxide 30 ml 07/28/19 16:22 Milk Of Magnesia Liq* PO Q6H PRN CONSTIPATION Senna 2 tab 07/28/19 16:22 Senokot 8.6 Mg Tab* PO BEDTIME PRN CONSTIPATION Tramadol HCl 50 mg 07/31/19 18:53 08/08/19 20:54 Ultram* PO 50 mg Q6H PRN Administration PAIN - MODERATE Vital Signs: Vital Signs Temp Pulse Resp BP Pulse Ox 97.4 F 91 20 128/69 96 08/09/19 05:52 08/09/19 05:52 08/09/19 08:39 08/09/19 05:52 08/09/19 08:00 Exam: GENERAL: No acute distress. Alert and appropriate. LUNGS: Clear to auscultation bilaterally HEART: Regular rate and rhythm ABDOMEN: Soft, non-tender, non-distended, + bowel sounds EXTREMITIES: Left AKA, suture line that is visible is clean NEUROLOGIC: Sensation intact in RLE. Moves UE and RLE with 5/5 strength. Hip flexion on left at least 4/5. SKIN: Dressings in place from 08/07 to left AKA; and gluteal and left posterior thigh from 08/08. Assessment/Plan: 1. Left above the knee amputation: PT/OT. Ampu shield falling off when he tries to stand and is not being used. Follow up with surgical services on 08/18. On Saturday see if staff can get report from [facility] from 08/07 visit. 2. Extensive osteomyelitis: Ancef 2 gm IV Q8H x 16 more days. [facility] will not cover home IV Abx. His family is willing to bring him to the hospital for IV outpatient infusion if he gets on a daily antibiotic or question if can switch to oral. I spoke to Dr. Gong 08/07 and he will consult on Saturday. 3. Urethral Stricture: [place] in, could not void. Will need urology f/u after d/ c. 4. Cataracts: Optho follow up after d/c 5. DVT Prophylaxis: Heparin S/Q 6. Advanced Directives: Full Code 7. Sacral pressure ulcer and left posterior thigh wound: Change to barrier cream and telfa at gluteal fold daily. Change to optifoam on posterior thigh Q3d. Mother instructed in dressing changes. 8. Nicotine Addiction: Refuses patch or nicotine gum. 9. Estimated LOS: anticipate d/c 08/13. 08/09/19 10:25
[2019-08-09] MEDS: Collagenase 250 UNITS/GM OINT* 1 APPLIC OINT TOPICAL SCH (11:41)
[2019-08-10] MEDS: HYDROcodone/ACETAMIN 5-325 MG* 1 TAB PO PRN ×3 (01:58→16:25)
[2019-08-10] MEDS: ceFAZolin 2 GM PREMIX in ORs 2 GM/50 ML BAG IVPB SCH ×2 (05:36→12:42)
[2019-08-10] MEDS: Heparin VIAL(*) 5000 UNITS/ML VIAL (FIVE THOUSAND) SUBCUT SCH ×2 (08:18→21:25)
[2019-08-10] MEDS: Lactobacillus Acidophilus* 1 TAB PO SCH ×2 (08:19→21:24)
[2019-08-10] MEDS: Gabapentin CAP(*) 100 MG PO SCH ×2 (08:20→21:23)
[2019-08-10] MEDS: traMADol TAB* 50 MG PO PRN ×2 (11:23→21:24)
[2019-08-10] MEDS: Collagenase 250 UNITS/GM OINT* 1 APPLIC OINT TOPICAL SCH ×2 (12:26→16:10)
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
--- NOTE | 2019-08-10 20:49 | PN ---
Progress Note Date of Service: 08/10/19 Note: GAMALIEL FRIAS was visited. Therapy notes read and reviewed. He was seen by Dr. Steele from CT today. Case was discussed with Dr. Steele. He will not need to go home on IV abx but an go home on PO Keflex. Sore on bottom healing and he feels better Current Medications: Active Medications Generic Name Dose Route Start Last Admin Trade Name Freq PRN Reason Stop Dose Admin Acetaminophen 650 mg 07/28/19 16:22 Tylenol Tab* PO Q6H PRN MILD PAIN or TEMP > 100.4 Hydrocodone Bitart/Acetaminophen 1 tab 08/03/19 14:03 08/10/19 16:25 [place] 5-325 Tab* PO 1 tab Q4H PRN Administration PAIN - MODERATE Calcium Carbonate 500 mg 08/08/19 09:52 Tums* PO Q4H PRN INDIGESTION Collagenase 1 applic 08/04/19 15:00 08/10/19 16:10 Santyl 250 Units/Gm Oint* TOPICAL 1 applic DAILY CHERRY Administration Diphenhydramine HCl 25 mg 08/03/19 17:00 08/04/19 21:45 Benadryl Po* PO 25 mg Q6H PRN Administration ITCHING Docusate Sodium 100 mg 08/09/19 09:07 Colace Cap* PO BID PRN CONSTIPATION Gabapentin 100 mg 08/06/19 21:00 08/10/19 08:20 Neurontin Cap(*) PO 100 mg BID CHERRY Administration Heparin Sodium (Porcine) 1 ml 07/29/19 06:00 08/10/19 17:22 Heparin Flush Picc/Ml/Cvc(*) FLUSH Not Given 0600,1800 [facility] Protocol Heparin Sodium (Porcine) 5,000 units 07/28/19 21:00 08/10/19 08:18 Heparin Vial(*) SUBCUT 5,000 units Q12HR CHERRY Administration Cefazolin Sodium 2 gm in 100 mls @ 200 mls/hr 08/10/19 21:00 Kefzol 2 Gm In Ns Premix(*) IVPB Q8H CHERRY Lactobacillus Rhamnosus 1 tab 07/30/19 21:00 08/10/19 08:19 Lactobacillus Acidophilus* PO 1 tab BID CHERRY Administration Magnesium Hydroxide 30 ml 07/28/19 16:22 Milk Of Magnesia Liq* PO Q6H PRN CONSTIPATION Senna 2 tab 07/28/19 16:22 Senokot 8.6 Mg Tab* PO BEDTIME PRN CONSTIPATION Tramadol HCl 50 mg 07/31/19 18:53 08/10/19 11:23 Ultram* PO 50 mg Q6H PRN Administration PAIN - MODERATE Vital Signs: Vital Signs Temp Pulse Resp BP Pulse Ox 97.9 F 95 15 102/54 97 08/10/19 16:44 08/10/19 16:44 08/10/19 18:27 08/10/19 17:00 08/10/19 16:44 Exam: GENERAL: No acute distress. Alert and appropriate. LUNGS: Clear to auscultation bilaterally HEART: Regular rate and rhythm ABDOMEN: Soft, non-tender, non-distended, + bowel sounds EXTREMITIES: Left AKA, suture line that is visible is clean NEUROLOGIC: Sensation intact in RLE. Moves UE and RLE with 5/5 strength. Hip flexion on left at least 4/5. Assessment/Plan: 1. Left above the knee amputation: PT/OT. Ampu shield falling off when he tries to stand and is not being used. Follow up with surgical services on 08/18. Note from 08/07 visit not mentionin ampu shield. 2. Extensive osteomyelitis: Ancef 2 gm IV Q8H x [address] Cedric magana he can go home with PO. 3. Urethral Stricture: Valladares in, could not void. Will need urology f/u after d/ c. 4. Cataracts: Optho follow up after d/c 5. DVT Prophylaxis: Heparin S/Q 6. Advanced Directives: Full Code 7. Sacral pressure ulcer and left posterior thigh wound: Healing. Appreciate wound care f/u. Mother instructed in dressing changes. 8. Nicotine Addiction: Refuses patch or nicotine gum. 9. Estimated LOS: anticipate d/c 08/13. 08/10/19 20:50 08/10/19 20:51
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
[2019-08-10] MEDS: ceFAZolin 2 GM in NS PREMIX(*) 2 GM/100 ML BAG IVPB SCH (21:20)
[2019-08-11] MEDS: HYDROcodone/ACETAMIN 5-325 MG* 1 TAB PO PRN ×5 (00:04→21:07)
[2019-08-11] MEDS: ceFAZolin 2 GM in NS PREMIX(*) 2 GM/100 ML BAG IVPB SCH ×3 (04:49→20:26)
[2019-08-11] MEDS: Gabapentin CAP(*) 100 MG PO SCH ×2 (08:17→20:13)
[2019-08-11] MEDS: Lactobacillus Acidophilus* 1 TAB PO SCH ×2 (08:17→20:12)
[2019-08-11] MEDS: Heparin VIAL(*) 5000 UNITS/ML VIAL (FIVE THOUSAND) SUBCUT SCH ×2 (08:18→20:26)
[2019-08-11] MEDS: Collagenase 250 UNITS/GM OINT* 1 APPLIC OINT TOPICAL SCH (09:33)
[2019-08-11] MEDS: traMADol TAB* 50 MG PO PRN ×2 (11:05→19:07)
--- NOTE | 2019-08-11 11:41 | PN ---
Progress Note Date of Service: 08/11/19 Note: GAMALIEL FRIAS was visited. Nursing and therapy notes read and reviewed. No chest pain, shortness of breath or abdominal pain. Current Medications: Active Medications Generic Name Dose Route Start Last Admin Trade Name Freq PRN Reason Stop Dose Admin Acetaminophen 650 mg 07/28/19 16:22 Tylenol Tab* PO Q6H PRN MILD PAIN or TEMP > 100.4 Hydrocodone Bitart/Acetaminophen 1 tab 08/03/19 14:03 08/11/19 08:19 [place] 5-325 Tab* PO 1 tab Q4H PRN Administration PAIN - MODERATE Calcium Carbonate 500 mg 08/08/19 09:52 Tums* PO Q4H PRN INDIGESTION Collagenase 1 applic 08/04/19 15:00 08/11/19 09:33 Santyl 250 Units/Gm Oint* TOPICAL 1 applic DAILY CHERRY Administration Diphenhydramine HCl 25 mg 08/03/19 17:00 08/04/19 21:45 Benadryl Po* PO 25 mg Q6H PRN Administration ITCHING Docusate Sodium 100 mg 08/09/19 09:07 Colace Cap* PO BID PRN CONSTIPATION Gabapentin 100 mg 08/06/19 21:00 08/11/19 08:17 Neurontin Cap(*) PO 100 mg BID CHERRY Administration Heparin Sodium (Porcine) 1 ml 07/29/19 06:00 08/11/19 05:30 Heparin Flush Picc/Ml/Cvc(*) FLUSH 1 ml 0600,1800 CHERRY Administration Protocol Heparin Sodium (Porcine) 5,000 units 07/28/19 21:00 08/11/19 08:18 Heparin Vial(*) SUBCUT 5,000 units Q12HR CHERRY Administration Cefazolin Sodium 2 gm in 100 mls @ 200 mls/hr 08/10/19 21:00 08/11/19 04:49 Kefzol 2 Gm In Ns Premix(*) IVPB 200 mls/hr Q8H CHERRY Administration Lactobacillus Rhamnosus 1 tab 07/30/19 21:00 08/11/19 08:17 Lactobacillus Acidophilus* PO 1 tab BID CHERRY Administration Magnesium Hydroxide 30 ml 07/28/19 16:22 Milk Of Magnesia Liq* PO Q6H PRN CONSTIPATION Senna 2 tab 07/28/19 16:22 Senokot 8.6 Mg Tab* PO BEDTIME PRN CONSTIPATION Tramadol HCl 50 mg 07/31/19 18:53 08/11/19 11:05 Ultram* PO 50 mg Q6H PRN Administration PAIN - MODERATE Vital Signs: Vital Signs Temp Pulse Resp BP Pulse Ox 98.1 F 86 20 106/57 96 08/11/19 04:53 08/11/19 04:53 08/11/19 11:08 08/11/19 04:53 08/11/19 08:15 Exam: GENERAL: No acute distress. Alert and appropriate. LUNGS: Clear to auscultation bilaterally HEART: Regular rate and rhythm ABDOMEN: Soft, non-tender, non-distended, + bowel sounds EXTREMITIES: Left AKA dressed. RLE no edema. NEUROLOGIC: Sensation intact in RLE. Moves UE and RLE with 5/5 strength. Hip flexion on left at least 4/5. SKIN: PICC dressing falling off. Nurse came in and redressed and flushed with NS and heparin without incident. Assessment/Plan: 1. Left above the knee amputation: PT/OT. Ampu shield falling off when he tries to stand and is not being used. Follow up with surgical services on 08/18. Note from 08/07 visit did not mention ampu shield. 2. Extensive osteomyelitis: Ancef 2 gm IV Q8H until discharge per Dr. Steele. At d/c change to keflex 500mg tid for 14 days and f/u with Dr. Steele locally. 3. Urethral Stricture: Valladares in, could not void. I called [facility] to refer. They will call him for appt. 4. Cataracts: Optho follow up after d/c 5. DVT Prophylaxis: Heparin S/Q 6. Advanced Directives: Full Code 7. Sacral pressure ulcer and left posterior thigh wound: Healing. Appreciate wound care f/u. Mother instructed in dressing changes. Referred to [facility] with appt on 08/21. 8. Nicotine Addiction: Refuses patch or nicotine gum. 9. Estimated LOS: anticipate d/c 08/13. Patient would like info on wheelchair transportation for his f/u doctor visits. 08/11/19 11:37
--- NOTE | 2019-08-11 12:22 | PMRUTEAM ---
PMRU: Team Meeting Current Status: Physical Therapy: Current Status Current Rolling Status Independent Current Supine <-> Sit Status Independent Current Sit <-> Stand Status Supervision/Touching Current Bed <-> Chair Status Supervision/Touching Transfer/Bed Mobility Rolling Walker Recommended Devices Transfer Mobility Comment Squat pivot or STP with RW Current Picking Up Object Dependent Status Current Car Transfer Status Supervision/Touching Current Ambulation Assistance Dependent due to WC follow Status Ambulation Assistive Device Rolling Walker Ambulation Conditions Two or More Turns Current Ambulation Distance 15' Ambulation Comment min Ax1 with RW + WC follow Manual Wheelchair Control/ Bilateral UE's Technique Current Wheelchair Propulsion Supervision/Touching Ability Status Wheelchair Distance (ft) 150' Current Stair Climbing Status Not attempted Current Curb Assistance Status Not attempted Objective Comments w/c mobility with intermittent touch assist for navigation due to visual deficit in hallways, pt more independent in bedroom Occupational Therapy: Current Status Current Upper Body Dressing Setup or Clean-up Assist Status Current Lower Body Dressing Partial/Moderate Status Current Footwear Status Dependent Current Bathing Status Setup or Clean-up Assist Bathing Progress assist for R lower leg/foot, assist for rear pericare due to wound Current Grooming Status Setup or Clean-up Assist Current Toileting Status Dependent Current Toilet Transfer Status Partial/Moderate Toilet Transfer Progress SPT to BSC with FWW and gait belt with Gaby x 1 with v/c's Current Eating Status Setup or Clean-up Assist Nursing: Current Status Skin Deviations [sacrum] Pressure Ulcer Skin Deviations [left high AKA Incision ] Skin Deviations [UK Stump] Incision Skin Deviations [Generalized] Rash Skin Deviations [Buttocks, Unblanchable groin] Skin Deviations [Left Upper Pressure Ulcer Posterior Leg] Skin Deviations [Left Lateral Wound Leg] Skin Deviations [Right Rash Anterior Thigh] Skin Deviations [Right Toe] Other Skin Deviations [Right Arm] Other Skin Deviations [Right Medial Other Ankle] Skin Deviations [Right Pressure Ulcer Buttocks] Skin Deviation Description [ drsg in place sacrum] Skin Deviation Description [ drsg in place left high AKA] Skin Deviation Description [ red, flat rash to BUE, R lateral thigh, torso Generalized] Skin Deviation Description [ reddened, blue cream applied Buttocks, groin] Skin Deviation Description [ stump and pressure ulcer drsg in place Left Upper Posterior Leg] Skin Deviation Description [ reddened, pt stated doesn't itch, blue cream Right Anterior Thigh] applied Skin Deviation Description [ BLACK TOE NAILS Right Toe] Skin Deviation Description [ PICC Right Arm] Skin Deviation Description [ brown rough skin patch; lotion applied Right Medial Ankle] Skin Deviation Description [ reddened Right Buttocks] Bladder Current Status nathan pittman'savita this am. HNV Bowel Current Status bm x4 08/03/19 Nutrition Current Status appetite fair Medication Current Status needs reinforcement Rec Therapy: Current Status Summary of Assessment and Recreation Therapy assesement complete. Pt is open Clinical Impression to leisure visits but is declining formal recreation activities at this time. Pt visits with family often and enjoys having the TV on to listen to. Treatment Goals Pt will engage in leisure activities while on the unit as tolerated Treatment Plan Provide recreation therapy services and encourage involvement Social Work: Current Status Discharge Plan return home with home care svs and family support Potential for Family Training pt's mother has attended family training Anticipated Discharge Home Destination Anticipated Discharge needs IV antibiotics at d/c Destination Comment Discharge With VNS and family support Nutrition: Current Status Monitoring pt now eating better vs last week; consuming nearly 100% of regular diet, requiring well-cooked meats and soft vegetables. Daily BMs; denies any GI concerns, daily lactobacillus since adm. Labs 08/05 unremarkable. No further specific intervention anticipated other than to continue to provide encouragement and suggest alternatives. He does enjoy V8 juice for breakfast, so will add that as well. Goals: Physical Therapy: Goals Goals to Be Accomplished in ( 10-14 Days) Goal: Rolling Assistance Independent Goal Supine <-> Sit Status Independent Goal Sit <-> Stand Status Supervision/Touching Goal Bed <-> Chair Status Supervision/Touching Transfer/Bed Mobility Rolling Walker Recommended Devices Goal: Picking Up Object Supervision/Touching Goal: Car Transfer Status Supervision/Touching Goal: Ambulation Assistance Supervision/Touching Ambulation Assistive Devices Rolling Walker Ambulation Distance (ft) 25' Goal: Wheelchair Propulsion Supervision/Touching Ability Wheelchair Distance (ft) 300 Goal: Stairs Assistance Partial/Moderate Number of Stairs 1 Goal: Curb Assistance Partial/Moderate Goal: Home Exercise Program Independent Assistance Occupational Therapy: Goals Goals to be Completed in (Days 7-10 ) Goal Upper Body Dressing Setup or Clean-up Assist Routine Goal Lower Body Dressing Setup or Clean-up Assist Routine Goal Footwear Status Setup or Clean-up Assist Goal Bathing Routine (OT) Setup or Clean-up Assist Goal Grooming Routine Setup or Clean-up Assist Goal Toilet Hygiene and Setup or Clean-up Assist Clothing Management Routine Goal Toilet Transfer Routine Supervision/Touching Goal Functional Transfers for Supervision/Touching ADL Goal Feeding Routine Setup or Clean-up Assist Nutrition: Goals Intervention Goals 1. Adequate oral intake to support wound healing , skin integrity, maintenance of lean body mass. 2. No further evidence of skin breakdown. Social Work: Goals Discharge Plan return home with home care svs and family support Potential for Family Training pt's mother has attended family training Anticipated Discharge Home Destination Anticipated Discharge needs IV antibiotics at d/c Destination Comment Discharge With VNS and family support Nursing: Goals Bladder Goal independent Bowel Goal independent Nutrition Goal 100% of all meals Medication Goal supervision Care Plan: Care Plan ADL's - Improve/Maintain Start: 07/29/19 16:33 Freq: DAILY@[id number] Status: Active Target: 07/30/19 Protocol: Activity Type Activity Date Activity User E-Sign Co-Sign Detail Recorded Client Recorded Date Recorded By Document 08/07/19 11:52 [email or web address] 08/07/19 11:52 [id number] 08/07/19 11:52 PMRU Outcome: ADL's/ADL Transfers Orders/Interventions Occupational Therapy Evaluation & Treatment Communication Tool in Patient Room Device Yes Address Deficits Secondary To: s/p Left AKA Patient to receive OT 5x/wk for 60-120 Therex min/day Self Care Management Group Therapy UE/LE ADL's with Assist Yes: supervision/ setup ADL Transfers with Assist supervision/ setup Toileting: Transfers,Clothing Management supervision/ ,Hygeine w/Assist setup Progression Toward Outcome/Goals Not Progressing Lack of Progression Comment Pt continues to be limited 2* pain, decreased tolerance for sitting at EOB, decreased motivation to participate this date, although did participate with cues for encouragement. Coping/Psych-Improve/Maintain Start: 07/28/19 16:44 Freq: DAILY@699,0 Status: Active Target: 08/13/19 Protocol: Activity Type Activity Date Activity User E-Sign Co-Sign Detail Recorded Client Recorded Date Recorded By Document 08/11/19 07:00 [id number] [id number] 08/11/19 10:45 [id number] 08/11/19 07:00 PMRU Outcome: Coping/Psychosocial Current Coping Outcome/Goals Verbalization of Acceptance of Rehab Admit Verbalization of Sense of Control Over Health Status Utilization of Appropriate Problem Solving Techniques Willingness to Participate in Treatment Plan and Basic Needs Utilization of Available Support Systems Progression Toward Outcome/Goals Progressing Current Psychosocial Outcome/Goals Maintain/ Improve Emotional Health Demonstrates Knowledge of Healthy Coping Mechanisms Available Cooperate/ Participate in Plan Progression Toward Outcome/Goals Progressing DVT Prophylaxis- Improve/Maintain Start: 07/28/19 16:44 Freq: DAILY@0700,1900 Status: Active Target: 08/13/19 Protocol: Activity Type Activity Date Activity User E-Sign Co-Sign Detail Recorded Client Recorded Date Recorded By Document 08/11/19 07:00 [id number] [id number] 08/11/19 10:45 08/11/19 07:00 PMRU Outcome: DVT Prophylaxis Current DVT Outcome/Goals Remains Free of DVT Complies with DVT Prophylaxis /Treatment Demonstrates Knowledge of DVT Prevention/ Treatment Progression Toward Outcome/Goals Progressing Outcome/Goals Met Remains Free of DVT Complies with DVT Prophylaxis /Treatment Demonstrates Knowledge of DVT Prevention/ Treatment Discharge Planning - Improve/Maintain Start: 07/28/19 16:44 Freq: DAILY@0700,1900 Status: Active Target: 08/13/19 Protocol: Activity Type Activity Date Activity User E-Sign Co-Sign Detail Recorded Client Recorded Date Recorded By Document 08/11/19 07:00 [id number] [email or web address] 08/11/19 10:45 [id number] 08/11/19 07:00 PMRU Outcome: Discharge Planning Update Patient Family Yes Current Discharge Planning Outcome/Goals Demonstrates Understanding of Discharge Plan Homecare Referral - See Comment Progression Toward Outcome/Goals Progressing Education-Improve/Maintain Start: 07/28/19 16:44 Freq: DAILY@0700,1900 Status: Active Target: 08/13/19 Protocol: Activity Type Activity Date Activity User E-Sign Co-Sign Detail Recorded Client Recorded Date Recorded By Document 08/11/19 07:00 [id number] [email or web address] 08/11/19 10:45 [id number] 08/11/19 07:00 PMRU Outcome: Education Current Education Outcome/Goals Demonstrate/ Verbalize Understanding of Written Discharge Instructions Demonstrates Skills Encourage Questions Progression Toward Outcome/Goals Progressing /GI-Improve/Maintain Start: 07/28/19 16:44 Freq: DAILY@0700,1900 Status: Active Target: 08/13/19 Protocol: Activity Type Activity Date Activity User E-Sign Co-Sign Detail Recorded Client Recorded Date Recorded By Document 08/11/19 07:00 [id number] 08/11/19 10:45 [id number] 08/11/19 07:00 PMRU Outcome: Genitourinary/ Gastrointestinal Current Gastrointestinal Outcome/Goals Maintain/ Achieve Bowel Regularity in Accordance with Pt's Baseline Remain Free of Emesis Prevent Constipation Bowel Regularity at Home Laxatives as Ordered Progression Toward Outcome/Goals Progressing Current Genitourinary Outcome/Goals Maintain/ Achieve Adequate Urinary Output Remain Free of Hospital- Acquired UTI Progression Toward Outcome/Goals Progressing Lack of Progression Comment Valladares in place, running clear and yellow urine Medication Administration Start: 07/28/19 16:44 Freq: DAILY@699,190 Status: Active Target: 08/13/19 Protocol: Activity Type Activity Date Activity User E-Sign Co-Sign Detail Recorded Client Recorded Date Recorded By Document 08/11/19 07:00 [id number] [email or web address] 08/11/19 10:45 [id number] 08/11/19 07:00 PMRU Outcome: Medication Administration Assess Patient Knowledge/Teach Med Yes Education for all Meds Current Software Development Advisor Outcome/Goals Family/ Caregiver Administer Medications at Home Demonstrates Understanding Progression Towards Outcome/Goals Progressing Is Patient Going Home on Lovenox? No Mobility- Improve/Maintain Start: 07/29/19 18:36 Freq: DAILY@699,0 Status: Active Target: 07/30/19 Protocol: Activity Type Activity Date Activity User E-Sign Co-Sign Detail Recorded Client Recorded Date Recorded By Document 08/04/19 16:39 [id number] [email or web address] 08/04/19 16:40 [id number] 08/04/19 16:39 PMRU Outcome: Mobility Physical Therapy Evaluation and Yes Treatment Activity OOB with Assistance Yes WBAT No NWB Yes TTWB No Device Yes Assistance Yes Patient to be seen 5x/wk for 60-120 min/ Therex day for: Mobility Training Gait Training W/C Mobility Balance Other Other Therapy Comment discharge training, discharge planning Current Mobility Outcome/Goals Improve Mobility Status Demonstrates Proper Use of Assistive Devices Progression Toward Outcome/Goals Progressing Bed Mobility Yes: independent Transfers Yes: supervision with RW Gait x ft Yes: supervision with RW, 25' W/C Mobility x ft Yes: 150' supervision Up/Down Stairs Yes: 1 step with RW and min Ax1 With HEP Yes: independent Pain/Comfort- Improve/Maintain Start: 07/28/19 16:44 Freq: DAILY@0700,1900 Status: Active Target: 08/13/19 Protocol: Activity Type Activity Date Activity User E-Sign Co-Sign Detail Recorded Client Recorded Date Recorded By Document 08/11/19 07:00 [id number] [email or web address] 08/11/19 10:45 [id number] 08/11/19 07:00 PMRU Outcome: Pain/Comfort Current Pain/Comfort Outcome/Goals Demonstrates Knowledge and Use of Available Comfort Measures Achieves Acceptable Comfort/Pain Level as Determined by Patient/Condit Maintain Comfort Level Allowing Patient to Fully Participate in Rehab Progression Toward Outcome/Goals Progressing Rec Therapy- Improve/Maintain Start: 07/29/19 14:18 Freq: DAILY@699,1899 Status: Active Target: 08/13/19 Protocol: Activity Type Activity Date Activity User E-Sign Co-Sign Detail Recorded Client Recorded Date Recorded By Document 08/03/19 13:28 [id number] [email or web address] 08/03/19 13:35 [id number] 08/03/19 13:28 PMRU Outcome: Recreation Therapy Current Rec Ther Outcome/Goals Complete Rec Therapy Assessment Meet with Patient Regularly for Support Encourage Leisure Involvement Progression Toward Outcome/Goals Progressing Lack of Progression Comment Provided pt with leisure visits, pt somewhat engaged in conversations, answering questions. Pt reports enjoying having the court TV on. Pt has family in to visit with him often. Declined needing any other recreation materials. Outcome/Goals Met Complete Rec Therapy Assessment Outcome/Goals Met Comment Recreation Therapy assessment complete Safety- Improve/Maintain Start: 07/28/19 14:57 Freq: DAILY@699,1900 Status: Active Target: 08/13/19 Protocol: Activity Type Activity Date Activity User E-Sign Co-Sign Detail Recorded Client Recorded Date Recorded By Document 08/11/19 07:00 [id number] 08/11/19 10:45 [id number] 08/11/19 07:00 PMRU Outcome: Safety Current Safety Outcome/Goals Remain Free of Injury or Harm Cooperates with Safety Measures for Least Restrictive Environment Prevent Falls/ Injury Progression Toward Outcome/Goals Progressing Skin- Improve/Maintain Start: 07/28/19 16:44 Freq: DAILY@0700,1900 Status: Active Target: 08/13/19 Protocol: Activity Type Activity Date Activity User E-Sign Co-Sign Detail Recorded Client Recorded Date Recorded By Document 08/11/19 07:00 [id number] 08/11/19 10:45 [id number] 08/11/19 07:00 PMRU Outcome: Skin Skin Risk Level High Risk Skin Orders Dressing Change Turn/Position q2hr While in Bed Skin Orders Comment pillows Current Skin Outcome/Goals Maintain/ Improve Skin Integrity Maintain/ Improve Wound Status Surgical Incisions Healing Progression Toward Outcome/Goals Progressing - Interdisciplinary Staff Present Side Show Entertainer/Social Work Staff Present: KACI Moya Nursing Staff Present: Leelee Patiño OT Staff Present: Yun Vargas PT Staff Present: [facility] Note: Length of Stay: [2 days] Anticipated Discharge Destination: Home Tentative Discharge Date: [08/13/19] Discharged to: [home]
[2019-08-12] MEDS: HYDROcodone/ACETAMIN 5-325 MG* 1 TAB PO PRN ×4 (01:53→21:02)
[2019-08-12] MEDS: ceFAZolin 2 GM in NS PREMIX(*) 2 GM/100 ML BAG IVPB SCH ×3 (05:00→21:00)
[2019-08-12] MEDS: traMADol TAB* 50 MG PO PRN (05:02)
[2019-08-12 05:24] LABS: ALT < 3 U/L (7-52); AST 13 U/L (13-39); Albumin 2.4 g/dL (3.2-5.2); Albumin/Globulin Ratio 0.8 (1-3); Alkaline Phosphatase 72 U/L (34-104); Anion Gap 3 mmol/L (2-11); BUN/Creatinine Ratio 10.4 (8-20); Blood Urea Nitrogen 14 mg/dL (6-24); C Reactive Protein 25.84 mg/L (<8.01); CO2 Carbon Dioxide 31 mmol/L (22-32); Calcium 8.9 mg/dL (8.6-10.3); Chloride 101 mmol/L (101-111); EGFR African American 66.2 (>60); EGFR Non-African American 54.8 (>60); Globulin 3.2 g/dL (2-4); Glucose 78 mg/dL (70-100); Sodium 135 mmol/L (135-145); Total Protein 5.6 g/dL (6.4-8.9)
[2019-08-12 05:28] LABS: ABS Basophils 0.1 10^3/ul (0-0.2); ABS Eosinophils 0.4 10^3/ul (0-0.6); ABS Lymphocytes 2.4 10^3/ul (1.0-4.8); ABS Monocytes 0.7 10^3/ul (0-0.8); ABS Neutrophils 2.6 10^3/ul (1.5-7.7); Eosinophil % 7.1 %; Hematocrit 36 % (42-52); Hemoglobin 11.7 g/dL (14.0-18.0); Lymphocyte % 38.4 %; Mean Corpuscular HGB Conc 33 g/dL (31-36); Mean Corpuscular Hemoglobin 28 pg (27-31); Mean Corpuscular Volume 86 fL (80-94); Mean Platelet Volume 8.5 fL (7.4-10.4); Nucleated Red Blood Cells % 0.1; Platelet Count 239 10^3/uL (150-450); Red Blood Count 4.13 10^6 /uL (4.18-5.48); Red Cell Distribution Width 20 % (10-15); White Blood Count 6.3 10^3/uL (3.5-10.8)
[2019-08-12 06:57] LABS: Erythrocyte Sed Rate 32 mm/Hr (0-19)
[2019-08-12] MEDS: Gabapentin CAP(*) 100 MG PO SCH ×2 (08:28→21:01)
[2019-08-12] MEDS: Lactobacillus Acidophilus* 1 TAB PO SCH ×2 (08:29→21:09)
[2019-08-12] MEDS: Heparin VIAL(*) 5000 UNITS/ML VIAL (FIVE THOUSAND) SUBCUT SCH ×2 (08:42→21:02)
--- NOTE | 2019-08-12 09:07 | PN ---
Progress Note Date of Service: 08/12/19 Note: GAMALIEL FRIAS was visited. Nursing and therapy notes read and reviewed. He does not feel that tramadol does anything and could use more norco. No chest pain, shortness of breath or abdominal pain. Current Medications: Active Medications Generic Name Dose Route Start Last Admin Trade Name Freq PRN Reason Stop Dose Admin Acetaminophen 650 mg 07/28/19 16:22 Tylenol Tab* PO Q6H PRN MILD PAIN or TEMP > 100.4 Hydrocodone Bitart/Acetaminophen 1 tab 08/03/19 14:03 08/12/19 08:27 [place] 5-325 Tab* PO 1 tab Q4H PRN Administration PAIN - MODERATE Hydrocodone Bitart/Acetaminophen 2 tab 08/12/19 08:30 [place] 5-325 Tab* PO Q4H PRN PAIN - SEVERE Calcium Carbonate 500 mg 08/08/19 09:52 Tums* PO Q4H PRN INDIGESTION Cephalexin HCl 500 mg 08/13/19 09:00 Keflex Cap* PO TID CHERRY Collagenase 1 applic 08/04/19 15:00 08/11/19 09:33 Santyl 250 Units/Gm Oint* TOPICAL 1 applic DAILY CHERRY Administration Diphenhydramine HCl 25 mg 08/03/19 17:00 08/04/19 21:45 Benadryl Po* PO 25 mg Q6H PRN Administration ITCHING Docusate Sodium 100 mg 08/09/19 09:07 Colace Cap* PO BID PRN CONSTIPATION Gabapentin 100 mg 08/06/19 21:00 08/12/19 08:28 Neurontin Cap(*) PO 100 mg BID CHERRY Administration Heparin Sodium (Porcine) 1 ml 07/29/19 06:00 08/12/19 05:36 Heparin Flush Picc/Ml/Cvc(*) FLUSH 1 ml 0600,1800 CHERRY Administration Protocol Heparin Sodium (Porcine) 5,000 units 07/28/19 21:00 08/12/19 08:42 Heparin Vial(*) SUBCUT 5,000 units Q12HR CHERRY Administration Cefazolin Sodium 2 gm in 100 mls @ 200 mls/hr 08/10/19 21:00 08/12/19 05:00 Kefzol 2 Gm In Ns Premix(*) IVPB 08/12/19 23:59 200 mls/hr Q8H CHERRY Administration Lactobacillus Rhamnosus 1 tab 07/30/19 21:00 08/12/19 08:29 Lactobacillus Acidophilus* PO 1 tab BID CHERRY Administration Magnesium Hydroxide 30 ml 07/28/19 16:22 Milk Of Magnesia Liq* PO Q6H PRN CONSTIPATION Senna 2 tab 07/28/19 16:22 Senokot 8.6 Mg Tab* PO BEDTIME PRN CONSTIPATION Vital Signs: Vital Signs Temp Pulse Resp BP Pulse Ox 98.3 F 86 14 110/60 95 08/12/19 05:08 08/12/19 05:08 08/12/19 08:35 08/12/19 05:08 08/12/19 05:08 Lab Results: Laboratory Results - last 24 hr 08/12/19 08/12/19 04:50 04:50 WBC 6.3 RBC 4.13 L Hgb 11.7 L Hct 36 L MCV 86 MCH 28 MCHC 33 RDW 20 H Plt Count 239 MPV 8.5 Neut % (Auto) 41.8 Lymph % (Auto) 38.4 [place] % (Auto) 10.4 Eos % (Auto) 7.1 Baso % (Auto) 2.3 Absolute Neuts (auto) 2.6 Absolute Lymphs (auto) 2.4 Absolute Monos (auto) 0.7 Absolute Eos (auto) 0.4 Absolute Basos (auto) 0.1 Absolute Nucleated RBC 0.0 Nucleated RBC % 0.1 ESR 32 H Sodium 135 Potassium 4.0 Chloride 101 Carbon Dioxide 31 Anion Gap 3 BUN 14 Creatinine 1.34 H Est GFR ( Amer) 66.2 Est GFR (Non-Af Amer) 54.8 BUN/Creatinine Ratio 10.4 Glucose 78 Calcium 8.9 Total Bilirubin 0.20 AST 13 ALT < 3 L Alkaline Phosphatase 72 C-Reactive Protein 25.84 H Total Protein 5.6 L Albumin 2.4 L Globulin 3.2 Albumin/Globulin Ratio 0.8 L Exam: GENERAL: No acute distress. Alert and appropriate. LUNGS: Clear to auscultation bilaterally HEART: Regular rate and rhythm ABDOMEN: Soft, non-tender, non-distended, + bowel sounds EXTREMITIES: Left AKA dressed. RLE no edema. NEUROLOGIC: Sensation intact in RLE. Moves UE and RLE with 5/5 strength. Hip flexion on left at least 4/5. SKIN: Gluteal wound getting smaller and looks clean. Thigh and stump dressed. Assessment/Plan: 1. Left above the knee amputation: PT/OT. Ampu shield falling off when he tries to stand and is not being used. Follow up with surgical services on 08/18. Note from 08/07 visit did not mention ampu shield. Pain control with just norco and d/c tramadol. 2. Extensive osteomyelitis: Ancef 2 gm IV Q8H until tomorrow then start keflex 500mg tid for 14 days and f/u with Dr. Gong locally. d/c Picc tomorrow. 3. Urethral Stricture: Valladares in, could not void. I called [facility] to refer. They will call him for appt. 4. Cataracts: Optho follow up after d/c 5. DVT Prophylaxis: Heparin S/Q 6. Advanced Directives: Full Code 7. Sacral pressure ulcer and left posterior thigh wound: Healing. Appreciate wound care f/u. Mother instructed in dressing changes. Referred to [facility] with appt on 08/21. 8. Nicotine Addiction: Refuses patch or nicotine gum. 9. Estimated LOS: anticipate d/c 08/13. Patient would like info on wheelchair transportation for his f/u doctor visits. 08/12/19 09:06
[2019-08-12] MEDS: Collagenase 250 UNITS/GM OINT* 1 APPLIC OINT TOPICAL SCH (09:30)
[2019-08-13] MEDS: HYDROcodone/ACETAMIN 5-325 MG* 1 TAB PO PRN ×4 (01:35→13:57)
[2019-08-13 06:24] VITALS: BP 110/59
--- NOTE | 2019-08-13 09:58 | PN ---
Progress Note Date of Service: 08/13/19 Note: GAMALIEL FRIAS was visited. Nursing and therapy notes read and reviewed. No chest pain, shortness of breath or abdominal pain. I was advised by pharmacy that Gamaliel's insurance would only allow him to have 6 [place] per day for a 7 day supply to start. Current Medications: Active Medications Generic Name Dose Route Start Last Admin Trade Name Freq PRN Reason Stop Dose Admin Acetaminophen 650 mg 07/28/19 16:22 Tylenol Tab* PO Q6H PRN MILD PAIN or TEMP > 100.4 Hydrocodone Bitart/Acetaminophen 1 tab 08/03/19 14:03 08/12/19 08:27 [place] 5-325 Tab* PO 1 tab Q4H PRN Administration PAIN - MODERATE Hydrocodone Bitart/Acetaminophen 2 tab 08/12/19 08:30 08/13/19 05:45 [place] 5-325 Tab* PO 2 tab Q4H PRN Administration PAIN - SEVERE Calcium Carbonate 500 mg 08/08/19 09:52 Tums* PO Q4H PRN INDIGESTION Cephalexin HCl 500 mg 08/13/19 09:00 Keflex Cap* PO TID CHERRY Collagenase 1 applic 08/04/19 15:00 08/12/19 09:30 Santyl 250 Units/Gm Oint* TOPICAL 1 applic DAILY CHERRY Administration Diphenhydramine HCl 25 mg 08/03/19 17:00 08/04/19 21:45 Benadryl Po* PO 25 mg Q6H PRN Administration ITCHING Docusate Sodium 100 mg 08/09/19 09:07 Colace Cap* PO BID PRN CONSTIPATION Gabapentin 100 mg 08/06/19 21:00 08/12/19 21:01 Neurontin Cap(*) PO 100 mg BID CHERRY Administration Heparin Sodium (Porcine) 1 ml 07/29/19 06:00 08/13/19 05:48 Heparin Flush Picc/Ml/Cvc(*) FLUSH 1 ml 0600,1800 CHERRY Administration Protocol Heparin Sodium (Porcine) 5,000 units 07/28/19 21:00 08/12/19 21:02 Heparin Vial(*) SUBCUT 5,000 units Q12HR CHERRY Administration Lactobacillus Rhamnosus 1 tab 07/30/19 21:00 08/12/19 21:09 Lactobacillus Acidophilus* PO 1 tab BID CHERRY Administration Magnesium Hydroxide 30 ml 07/28/19 16:22 Milk Of Magnesia Liq* PO Q6H PRN CONSTIPATION Senna 2 tab 07/28/19 16:22 Senokot 8.6 Mg Tab* PO BEDTIME PRN CONSTIPATION Vital Signs: Vital Signs Temp Pulse Resp BP Pulse Ox 98 F 94 16 110/59 97 08/13/19 05:46 08/13/19 05:46 08/13/19 05:46 08/13/19 05:46 08/13/19 05:46 Exam: GENERAL: No acute distress. Alert and appropriate. LUNGS: Clear to auscultation bilaterally HEART: Regular rate and rhythm ABDOMEN: Soft, non-tender, non-distended, + bowel sounds EXTREMITIES: Left AKA dressed. RLE no edema. NEUROLOGIC: Sensation intact in RLE. Moves UE and RLE with 5/5 strength. Hip flexion on left at least 4/5. SKIN: Gluteal wound getting smaller 2.7cm x 2.8cm. Left posterior thigh with granulating tissue 5.5cm x 5cm. Assessment/Plan: 1. Left above the knee amputation: PT/OT. Ampu shield falling off when he tries to stand and is not being used. Follow up with surgical services on 08/18. Note from 08/07 visit did not mention ampu shield. Pain control with just norco. His insurance would only allow 6 pills per day for 7 days for an initial prescription. This was explained to Gamaliel and his mother. He will have primary care f/u at the [facility] clinic with Dr. Steen on 08/17 and [facility] on 08/18 and will need to establish with one of those venues for refill of pain medication. 2. Extensive osteomyelitis: Start keflex 500mg tid for 14 days today and f/u with Dr. Gong locally. d/c Picc. 3. Urethral Stricture: Valladares in, could not void. I called [facility] to refer. They will call him for appt. 4. Cataracts: Optho follow up after d/c 5. DVT Prophylaxis: Heparin S/Q 6. Advanced Directives: Full Code 7. Sacral pressure ulcer and left posterior thigh wound: Healing. Mother instructed in dressing changes. Referred to [facility] with appt on 08/21. 8. Nicotine Addiction: Refuses patch or nicotine gum. 9. Estimated LOS: d/c today. 08/13/19 10:01
[2019-08-13] MEDS: Heparin VIAL(*) 5000 UNITS/ML VIAL (FIVE THOUSAND) SUBCUT SCH (10:05)
[2019-08-13] MEDS: Cephalexin CAP* 500 MG PO SCH ×2 (10:05→13:58)
[2019-08-13] MEDS: Collagenase 250 UNITS/GM OINT* 1 APPLIC OINT TOPICAL SCH (10:05)
[2019-08-13] MEDS: Gabapentin CAP(*) 100 MG PO SCH (10:05)
[2019-08-13] MEDS: Lactobacillus Acidophilus* 1 TAB PO SCH (13:57)
--- NOTE | 2019-08-13 20:53 | DS ---
CC: Dr. Steen; [facility]; Dr. Sid Gnog, Infectious Diseases; [facility] REHABILITATION DISCHARGE SUMMARY: DATE OF ADMISSION: 07/28/19 DATE OF DISCHARGE: 08/13/19 PRIMARY CARE PROVIDER: He will be going to the [facility] to see Dr. Steen. REASON FOR ADMISSION: Left above-knee amputation. HISTORY OF PRESENT ILLNESS: For full details of his acute hospitalization leading up to his admission, please see the note dictated by Dr. Holt. Briefly, due to extensive osteomyelitis involving his tibia as well as wounds, he underwent left above-knee amputation on 07/23/19 under the vascular service at [facility]. He was also noted at that time to have a urethral stricture and underwent dilatation with evans placement. He was seen by the infectious disease service there and empirically was on Zosyn, but then switched to Ancef after the blood cultures came back positive for methicillin-sensitive Staph aureus. He has essentially been blind and has advanced cataracts. REHABILITATION COURSE: During his time on the [facility], his dressing remained intact on his left above-knee amputation surgical site. He was given an AmpuShield to use, but with being upright, it would just fall off. He had followup with [facility] on 08/07/19. His dressing was changed and he was given another followup appointment with [facility] in [place] on 08/18/19. There was no comments on whether he could use a warehouse technician at this time. He came with 2 sores. The gluteal sore has been closing and currently is treated with barrier cream around the actual sore and then a Tegaderm over it, which stays in place on its own as it is in the gluteal cleft. This is changed daily. His mother was instructed on how to care for this area and change that dressing. In addition, he has granulating tissue on his left posterior thigh more proximal than his surgical site. Currently, this is dressed with Optifoam , changed at least every 3 days or as needed. He was seen by the wound service here at [facility] and will establish care with the wound center as an outpatient with his first appointment on 08/21/19. He remained on IV antibiotics of Ancef. Our infectious disease service was consulted and it was felt that when he discharged to home, he could change to Keflex 500 mg t.i.d. for an additional 14 days. This is being initiated on the day of discharge. He had a voiding trial on 08/05/19 which was unsuccessful. He continued to have urine retention. The Evans catheter was placed back in and he has been referred to [facility] for further management. He has had ongoing issues with his cataracts. He needs to see his fax machine repairer after discharge. He participated well with physical therapy and at the time of discharge, he was independent with bed mobility. He requires closed supervision with setting up assistance as needed to stand and pivot transfer with a rolling walker. He can ambulate with therapy as he progresses. He requires assistance of a wheelchair service to bump his chair in and out for stairs. He is nonweightbearing to his left lower extremity and should do weight shifts every 1 to 2 hours to maximize circulation and healing of his skin. We have requested and ordered through his insurance a ROHO cushion to help with skin protection, but it will not be delivered until 08/17/19. He also participated well with occupational therapy and at the time of discharge, requires setup assistance for eating. He requires setup assistance for bathing and to help transfers, but needs assistance for hygiene of his bottom and his right foot. For dressing, he needs setup for upper body dressing. He requires assistance for lower body dressing. He needs hands-on assistance for toileting with a walker and pivoting to the commode. He requires assistance for home management and cooking. His mother came in for training with physical therapy and occupational therapy on multiple days and is able to assist him as needed. She will also be responsible for dressing changes as needed. His PICC line was removed prior to his discharge. DISCHARGE CONDITION: Fair. DISCHARGE DISPOSITION: Home with family support. FOLLOWUP: 1. [facility] in [place] on 08/18/19 at 11 a.m. 2. [facility] on 08/21/19 at 12:45 p.m. 3. He is to make a followup appointment to see his fax machine repairer. 4. A referral has been sent to [facility] for ongoing home care. 5. He should follow up with Dr. Sid Gong in Infectious Disease within 1 to 2 weeks. 6. He has an appointment in the [facility] to see Dr. Steen as a bridge for his primary care at 9 a.m. on 08/17/19. 7. He should call [facility] to set up regular primary care. 8. A referral has been sent to [facility] to follow up on his urethral stricture and urine retention. DISCHARGE MEDICATIONS: 1. Acetaminophen 650 mg q.6 hours p.r.n. 2. Tums 1000 mg q.4 hours p.r.n. indigestion. 3. Keflex 500 mg t.i.d. for 14 days. 4. Benadryl 25 mg q.6 hours p.r.n. itching. 5. Gabapentin 100 mg p.o. b.i.d., started for phantom pain. 6. Grady 5/325 one to two tablets q.4 hours p.r.n. pain. His insurance has only allowed him to have 6 tablets per day for the initial week. 7. Lactobacillus 1 tablet b.i.d. DISCHARGE DIAGNOSES: 1. 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 2. History of bacteremia. 3. Urethral stricture with urine retention. 4. Cataracts. 5. Sacral pressure ulcer. 6. Left posterior thigh wound. 7. Nicotine addiction. [id number]/[facility] #: [id number] ANGELINA
== END 2019-08-13 15:19 | disposition home health service (06) | DRG 860 ==
LOC: PMRU 14:33
PROVIDERS: ADMIT Physical Medicine & Rehabilitation; ATTEND Physical Medicine & Rehabilitation
PROC: F07Z5ZZ Bed Mobility Treatment (ICD-10-PCS; principal; 2019-07-28)
PROC: F07Z9ZZ Gait Training/Functional Ambulation Treatment (ICD-10-PCS; 2019-07-28)
PROC: F07Z8ZZ Transfer Training Treatment (ICD-10-PCS; 2019-07-28)
PROC: F07Z4ZZ Wheelchair Mobility Treatment (ICD-10-PCS; 2019-07-28)
PROC: F08Z0ZZ Bathing/Showering Techniques Treatment (ICD-10-PCS; 2019-07-28)
PROC: F08Z1ZZ Dressing Techniques Treatment (ICD-10-PCS; 2019-07-28)
PROC: F08Z3ZZ Feeding/Eating Treatment (ICD-10-PCS; 2019-07-28)
PROC: F08Z2ZZ Grooming/Personal Hygiene Treatment (ICD-10-PCS; 2019-07-28)
DX: Z47.81 Encounter for orthopedic aftercare following surgical amputation (principal); L89.153 Pressure ulcer of sacral region, stage 3; M86.162 Other acute osteomyelitis, left tibia and fibula; L97.128 Non-pressure chronic ulcer of left thigh with other specified severity; M86.662 Other chronic osteomyelitis, left tibia and fibula; Z89.612 Acquired absence of left leg above knee; N35.919 Unspecified urethral stricture, male, unspecified site; R33.8 Other retention of urine; H26.9 Unspecified cataract; F17.210 Nicotine dependence, cigarettes, uncomplicated; H54.8 Legal blindness, as defined in USA; I10 Essential (primary) hypertension; G83.14 Monoplegia of lower limb affecting left nondominant side; Z99.3 Dependence on wheelchair
CPT/HCPCS: 36415; 80053; 81003; 81015; 85025; 85652; 86140; 87086; A9270-GY; J0690; J1644

== ENCOUNTER 2023-07-28 15:14 | Inpatient (IN) ==
[2023-07-28] MEDS ORDERED: Lactated Ringers 1000 ml BAG 1,000 ML IV ONE ×2 (15:48→15:49)
[2023-07-28 16:28] LABS: ABS Lymphocytes 0.7 10^3/uL (1.0-4.8); ABS Monocytes 1.1 10^3/uL (0.0-1.1); ABS Neutrophils 12.5 10^3/uL (1.5-7.6); ABS Nucleated RBC 0.01 10^3/ul; Eosinophil % 0.1 %; Hematocrit 45.3 % (38-53); Hemoglobin 15.6 g/dL (13.2-16.3); Lymphocyte % 4.6 %; Mean Corpuscular Hemoglobin 32.6 pg (27-33); Mean Corpuscular Hgb Conc 34.3 g/dL (31-36); Mean Corpuscular Volume 94.8 fL (80-97); Mean Platelet Volume 8.4 fL (7.5-11.2); Platelet Count 368 10^3/uL (150-450); Red Blood Count 4.78 10^6/uL (4.06-5.63); White Blood Count 14.2 10^3/uL (3.6-10.2)
[2023-07-28 16:37] LABS: Albumin 3.8 g/dL (3.2-5.2); C Reactive Protein 198.01 mg/L (<8.01); Calcium 9.9 mg/dL (8.6-10.3); Creatinine, Serum 2.41 mg/dL (0.67-1.17); Potassium 4.8 mmol/L (3.5-5.0); Total Bilirubin 0.8 mg/dL (0.2-1.0); Total Protein 7.8 g/dL (6.4-8.9); eGFR CKD-EPI 29.6 (>60)
[2023-07-28] MEDS ORDERED: Vancomycin 1,500 MG in NS 0.9% 250 ml 250 ML IVPB ONE (16:46)
[2023-07-28 17:47] LABS: Erythrocyte Sed Rate 37 mm/Hr (0-19)
[2023-07-28] MEDS ORDERED: Piperacillin/Tazobac 3.375 BAG 3.375 GM/100 ML BAG IV ONE (17:57)
[2023-07-28] MEDS ORDERED: Ondansetron 4 mg VIAL 2 MG/ML 2 ml VIAL IV PRN (17:59)
[2023-07-28] MEDS ORDERED: Zosyn per Pharmacy NOTE FOLLOW UP SCH (18:00)
[2023-07-28] MEDS ORDERED: Vancomycin per Pharmacy 1 EA NOTE FOLLOW UP SCH (18:00)
[2023-07-28] MEDS ORDERED: Thiamine 100 MG/ML 2 ml VIAL (200 mg) IM ONE (18:02)
[2023-07-28 19:38] LABS: Calcium 8.8 mg/dL (8.6-10.3); Creatinine, Serum 2.12 mg/dL (0.67-1.17); Potassium 4.5 mmol/L (3.5-5.0); eGFR CKD-EPI 34.5 (>60)
[2023-07-28] MEDS: Enoxaparin 40 MG/0.4 ML SYR SUBCUT SCH (19:53)
[2023-07-28] MEDS: NS 0.9% 1000 ml BAG 1,000 ML IV SCH (19:54)
[2023-07-28] MEDS: Multivitamins/Minerals TAB PO SCH (19:54)
[2023-07-28] MEDS: Albuterol/Ipratropium NEB.SOL (2.5/0.5 MG) 3 ML NEB.SOLN INH SCH (20:30)
[2023-07-28] MEDS: oxyCODONE/Acetamin 5/325 mg TAB PO PRN (23:55)
[2023-07-29] MEDS: oxyCODONE/Acetamin 5/325 mg TAB PO PRN ×2 (04:57→19:16)
[2023-07-29] MEDS: NS 0.9% 1000 ml BAG 1,000 ML IV SCH (05:21)
[2023-07-29 05:56] LABS: ABS Lymphocytes 0.9 10^3/uL (1.0-4.8); ABS Monocytes 0.8 10^3/uL (0.0-1.1); Eosinophil % 0.4 %; Hematocrit 36.3 % (38-53); Hemoglobin 12.3 g/dL (13.2-16.3); Lymphocyte % 9.8 %; Mean Corpuscular Hgb Conc 33.9 g/dL (31-36); Mean Corpuscular Volume 94.7 fL (80-97); Mean Platelet Volume 8.2 fL (7.5-11.2); Platelet Count 248 10^3/uL (150-450); Red Blood Count 3.84 10^6/uL (4.06-5.63); Red Cell Distribution Width 13.9 % (12-17); White Blood Count 8.7 10^3/uL (3.6-10.2)
[2023-07-29 06:36] LABS: Magnesium 1.6 mg/dL (1.9-2.7)
[2023-07-29 06:37] LABS: Calcium 8.4 mg/dL (8.6-10.3); Potassium 3.8 mmol/L (3.5-5.0)
[2023-07-29] MEDS ORDERED: ZOSYN 3.375 GM Q8H per EXTENDED INFUSION IV SCH ×2 (08:00)
[2023-07-29] MEDS ORDERED: Magnesium Sulfate 2 gm BAG 2 GM/50 ML BAG IVPB ONE (08:11)
[2023-07-29] MEDS: Albuterol/Ipratropium NEB.SOL (2.5/0.5 MG) 3 ML NEB.SOLN INH SCH ×4 (08:33→20:47)
[2023-07-29] MEDS: Multivitamins/Minerals TAB PO SCH (09:09)
[2023-07-29 16:59] LABS: Calcium 8.1 mg/dL (8.6-10.3); Creatinine, Serum 2.04 mg/dL (0.67-1.17); eGFR CKD-EPI 36.2 (>60)
[2023-07-29] MEDS ORDERED: Vancomycin 1,250 MG in NS 0.9% 250 ml 250 ML IVPB SCH (17:00)
[2023-07-29] MEDS: cefTRIAXone 1 gm/50 mL D5W 1 GM/50 ML BAG IV SCH (18:32)
[2023-07-29 18:45] LABS: Urine Appearance Turbid; Urine Bilirubin Negative (Negative); Urine Blood 1+ (Negative); Urine Color Amber; Urine Glucose Negative (Negative); Urine Ketones Negative (Negative); Urine Nitrite Negative (Negative); Urine Protein 3+(>=500 mg/dL) (Negative); Urine Specific Gravity 1.009 (1.002-1.030); Urine Urobilinogen Negative (Negative)
[2023-07-29 19:09] LABS: Urine Bacteria 3+ (Absent); Urine Red Blood Cell 2+(6-10/hpf) (Absent); Urine White Blood Cell 3+(>20/hpf) (Absent)
[2023-07-29] MEDS: Enoxaparin 40 MG/0.4 ML SYR SUBCUT SCH (19:15)
[2023-07-29] MEDS ORDERED: Albuterol/Ipratropium NEB.SOL (2.5/0.5 MG) 3 ML NEB.SOLN INH PRN (20:51)
[2023-07-30 05:48] LABS: ABS Basophils 0.1 10^3/uL (0.0-0.1); ABS Eosinophils 0.1 10^3/uL (0.0-0.5); ABS Lymphocytes 1.1 10^3/uL (1.0-4.8); ABS Monocytes 0.6 10^3/uL (0.0-1.1); ABS Neutrophils 7.2 10^3/uL (1.5-7.6); Eosinophil % 0.6 %; Hematocrit 33.7 % (38-53); Hemoglobin 11.4 g/dL (13.2-16.3); Lymphocyte % 11.7 %; Mean Corpuscular Hemoglobin 32.1 pg (27-33); Mean Corpuscular Hgb Conc 33.8 g/dL (31-36); Mean Platelet Volume 8.2 fL (7.5-11.2); Platelet Count 250 10^3/uL (150-450); Red Blood Count 3.55 10^6/uL (4.06-5.63); Red Cell Distribution Width 14.2 % (12-17)
[2023-07-30 06:05] LABS: Calcium 8.1 mg/dL (8.6-10.3); Creatinine, Serum 2.04 mg/dL (0.67-1.17); Potassium 3.7 mmol/L (3.5-5.0); eGFR CKD-EPI 36.2 (>60)
[2023-07-30 08:38] LABS: C Reactive Protein 132.6 mg/L (<8.01)
[2023-07-30 10:14] LABS: Osmolality Serum 277 mOsm/kg (275-295)
[2023-07-30] MEDS: oxyCODONE/Acetamin 5/325 mg TAB PO PRN ×2 (10:21→21:50)
[2023-07-30] MEDS: Multivitamins/Minerals TAB PO SCH (10:21)
[2023-07-30 11:24] LABS: Urine Osmo 228 mOsm/kg (150-1150)
[2023-07-30] MEDS: cefTRIAXone 1 gm/50 mL D5W 1 GM/50 ML BAG IV SCH (18:28)
[2023-07-30] MEDS: Enoxaparin 40 MG/0.4 ML SYR SUBCUT SCH (18:29)
[2023-07-31 08:05] LABS: ABS Eosinophils 0.1 10^3/uL (0.0-0.5); ABS Lymphocytes 1.1 10^3/uL (1.0-4.8); ABS Monocytes 0.6 10^3/uL (0.0-1.1); ABS Neutrophils 6.4 10^3/uL (1.5-7.6); ABS Nucleated RBC 0.01 10^3/ul; Eosinophil % 0.8 %; Hematocrit 36.3 % (38-53); Hemoglobin 12.3 g/dL (13.2-16.3); Lymphocyte % 13.8 %; Mean Corpuscular Hgb Conc 33.9 g/dL (31-36); Mean Corpuscular Volume 94.4 fL (80-97); Mean Platelet Volume 7.8 fL (7.5-11.2); Nucleated Red Blood Cells % 0.1 %/100WBC (0.0-0.8); Platelet Count 250 10^3/uL (150-450); Red Blood Count 3.84 10^6/uL (4.06-5.63); Red Cell Distribution Width 14.1 % (12-17); White Blood Count 8.2 10^3/uL (3.6-10.2)
[2023-07-31 08:21] LABS: Calcium 8.2 mg/dL (8.6-10.3); Creatinine, Serum 2.07 mg/dL (0.67-1.17); Potassium 3.9 mmol/L (3.5-5.0); eGFR CKD-EPI 35.5 (>60)
[2023-07-31] MEDS: Multivitamins/Minerals TAB PO SCH (08:42)
[2023-07-31] MEDS: oxyCODONE/Acetamin 5/325 mg TAB PO PRN ×2 (10:58→19:50)
[2023-07-31] MEDS ORDERED: Ure-Na 15 GM POWD.PACK PO ONE (15:13)
[2023-07-31] MEDS: cefTRIAXone 1 gm/50 mL D5W 1 GM/50 ML BAG IV SCH (16:17)
[2023-07-31] MEDS ORDERED: Vancomycin Trough Check NOTE FOLLOW UP ONE (16:30)
[2023-07-31] MEDS: Enoxaparin 40 MG/0.4 ML SYR SUBCUT SCH (17:16)
[2023-08-01 06:02] LABS: ABS Eosinophils 0.1 10^3/uL (0.0-0.5); ABS Lymphocytes 1.4 10^3/uL (1.0-4.8); ABS Monocytes 0.6 10^3/uL (0.0-1.1); ABS Neutrophils 4.2 10^3/uL (1.5-7.6); ABS Nucleated RBC 0.01 10^3/ul; Eosinophil % 1.1 %; Hematocrit 34.2 % (38-53); Hemoglobin 11.7 g/dL (13.2-16.3); Lymphocyte % 21.8 %; Mean Corpuscular Hemoglobin 32.2 pg (27-33); Mean Corpuscular Hgb Conc 34.2 g/dL (31-36); Mean Corpuscular Volume 94.1 fL (80-97); Mean Platelet Volume 8.2 fL (7.5-11.2); Nucleated Red Blood Cells % 0.1 %/100WBC (0.0-0.8); Platelet Count 245 10^3/uL (150-450); Red Blood Count 3.64 10^6/uL (4.06-5.63); Red Cell Distribution Width 14.2 % (12-17); White Blood Count 6.2 10^3/uL (3.6-10.2)
[2023-08-01 06:23] LABS: C Reactive Protein 191.41 mg/L (<8.01)
[2023-08-01 08:01] LABS: Calcium 8.7 mg/dL (8.6-10.3); Creatinine, Serum 2.46 mg/dL (0.67-1.17); eGFR CKD-EPI 28.9 (>60)
[2023-08-01] MEDS: Multivitamins/Minerals TAB PO SCH (09:32)
[2023-08-01 12:10] LABS: Urine Appearance Turbid; Urine Bilirubin Negative (Negative); Urine Blood 2+ (Negative); Urine Color Yellow; Urine Glucose Negative (Negative); Urine Ketones Negative (Negative); Urine Nitrite Negative (Negative); Urine Protein 2+(100 mg/dL) (Negative); Urine Specific Gravity 1.005 (1.002-1.030); Urine Urobilinogen Negative (Negative)
[2023-08-01 12:18] LABS: Urine Bacteria 1+ (Absent); Urine Red Blood Cell 3+(>10/hpf) (Absent); Urine White Blood Cell 3+(>20/hpf) (Absent)
[2023-08-01] MEDS ORDERED: Ure-Na 15 GM POWD.PACK PO ONE (14:13)
[2023-08-01] MEDS: cefTRIAXone 1 gm/50 mL D5W 1 GM/50 ML BAG IV SCH (17:37)
[2023-08-01] MEDS: Enoxaparin 40 MG/0.4 ML SYR SUBCUT SCH (17:38)
[2023-08-02 06:42] LABS: C Reactive Protein 122.26 mg/L (<8.01); Calcium 8.6 mg/dL (8.6-10.3); Creatinine, Serum 2.44 mg/dL (0.67-1.17); Potassium 3.8 mmol/L (3.5-5.0); eGFR CKD-EPI 29.2 (>60)
[2023-08-02] MEDS: Multivitamins/Minerals TAB PO SCH (10:59)
[2023-08-02] MEDS: cefTRIAXone 1 gm/50 mL D5W 1 GM/50 ML BAG IV SCH (17:42)
[2023-08-02] MEDS: Enoxaparin 40 MG/0.4 ML SYR SUBCUT SCH (17:42)
[2023-08-02] MEDS ORDERED: Ure-Na 15 GM POWD.PACK PO ONE (21:00)
[2023-08-03 07:31] LABS: ABS Eosinophils 0.1 10^3/uL (0.0-0.5); ABS Lymphocytes 1.1 10^3/uL (1.0-4.8); ABS Monocytes 0.8 10^3/uL (0.0-1.1); ABS Neutrophils 4.5 10^3/uL (1.5-7.6); ABS Nucleated RBC 0.01 10^3/ul; Eosinophil % 1.5 %; Hematocrit 31.5 % (38-53); Hemoglobin 10.6 g/dL (13.2-16.3); Lymphocyte % 16.9 %; Mean Corpuscular Hgb Conc 33.8 g/dL (31-36); Mean Corpuscular Volume 94.6 fL (80-97); Mean Platelet Volume 7.8 fL (7.5-11.2); Nucleated Red Blood Cells % 0.2 %/100WBC (0.0-0.8); Platelet Count 254 10^3/uL (150-450); Red Blood Count 3.33 10^6/uL (4.06-5.63); Red Cell Distribution Width 13.8 % (12-17); White Blood Count 6.6 10^3/uL (3.6-10.2)
[2023-08-03 07:46] LABS: Calcium 8.7 mg/dL (8.6-10.3); Creatinine, Serum 2.35 mg/dL (0.67-1.17); Potassium 3.9 mmol/L (3.5-5.0); eGFR CKD-EPI 30.5 (>60)
[2023-08-03] MEDS: Multivitamins/Minerals TAB PO SCH (08:42)
[2023-08-03] MEDS ORDERED: Ure-Na 15 GM POWD.PACK PO ONE (14:50)
[2023-08-03] MEDS: cefTRIAXone 1 gm/50 mL D5W 1 GM/50 ML BAG IV SCH (17:40)
[2023-08-03] MEDS: Enoxaparin 40 MG/0.4 ML SYR SUBCUT SCH (17:40)
[2023-08-04] MEDS: Multivitamins/Minerals TAB PO SCH (08:16)
[2023-08-04 13:20] LABS: ABS Eosinophils 0.1 10^3/uL (0.0-0.5); ABS Lymphocytes 1.3 10^3/uL (1.0-4.8); ABS Monocytes 0.7 10^3/uL (0.0-1.1); ABS Neutrophils 5.5 10^3/uL (1.5-7.6); Eosinophil % 1.1 %; Hematocrit 34.9 % (38-53); Hemoglobin 11.7 g/dL (13.2-16.3); Mean Corpuscular Hemoglobin 31.8 pg (27-33); Mean Corpuscular Hgb Conc 33.5 g/dL (31-36); Mean Corpuscular Volume 94.9 fL (80-97); Mean Platelet Volume 7.8 fL (7.5-11.2); Platelet Count 306 10^3/uL (150-450); Red Blood Count 3.68 10^6/uL (4.06-5.63); Red Cell Distribution Width 14.1 % (12-17); White Blood Count 7.7 10^3/uL (3.6-10.2)
[2023-08-04 13:36] LABS: Calcium 9.1 mg/dL (8.6-10.3); Creatinine, Serum 2.07 mg/dL (0.67-1.17); Potassium 4.4 mmol/L (3.5-5.0); eGFR CKD-EPI 35.5 (>60)
[2023-08-04] MEDS: cefTRIAXone 1 gm/50 mL D5W 1 GM/50 ML BAG IV SCH (16:22)
[2023-08-04] MEDS: Enoxaparin 40 MG/0.4 ML SYR SUBCUT SCH (16:26)
[2023-08-05 06:45] LABS: ABS Eosinophils 0.1 10^3/uL (0.0-0.5); ABS Lymphocytes 1.6 10^3/uL (1.0-4.8); ABS Monocytes 0.6 10^3/uL (0.0-1.1); ABS Neutrophils 3.4 10^3/uL (1.5-7.6); ABS Nucleated RBC 0.01 10^3/ul; Eosinophil % 2.1 %; Hematocrit 32.7 % (38-53); Lymphocyte % 28.3 %; Mean Corpuscular Hemoglobin 31.9 pg (27-33); Mean Corpuscular Hgb Conc 33.7 g/dL (31-36); Mean Corpuscular Volume 94.6 fL (80-97); Mean Platelet Volume 7.7 fL (7.5-11.2); Nucleated Red Blood Cells % 0.1 %/100WBC (0.0-0.8); Platelet Count 269 10^3/uL (150-450); Red Blood Count 3.45 10^6/uL (4.06-5.63); Red Cell Distribution Width 14.1 % (12-17); White Blood Count 5.8 10^3/uL (3.6-10.2)
[2023-08-05 08:35] LABS: Calcium 8.9 mg/dL (8.6-10.3); Creatinine, Serum 2.01 mg/dL (0.67-1.17); Magnesium 1.5 mg/dL (1.9-2.7); Potassium 4.3 mmol/L (3.5-5.0); eGFR CKD-EPI 36.8 (>60)
[2023-08-05] MEDS ORDERED: Lidocaine 2% PF 5 ML VIAL ONE (11:52)
[2023-08-05] MEDS ORDERED: Propofol 10 MG/ML 20 ML BTL ONE (11:52)
[2023-08-05] MEDS ORDERED: Midazolam 2 mg/2 ml VIAL 1 mg/ml 2 ml VIAL (2 mg) ONE (11:53)
[2023-08-05] MEDS ORDERED: fentaNYL 100 mcg/2 ml 50 MCG/ML VIAL ONE (11:53)
[2023-08-05] MEDS ORDERED: Ondansetron 4 mg VIAL 2 MG/ML 2 ml VIAL ONE (12:39)
[2023-08-05] MEDS ORDERED: Dexamethasone IV 4 MG/ML VIAL 1 ml VIAL ONE (12:40)
[2023-08-05] MEDS ORDERED: fentaNYL 100 mcg/2 ml 50 MCG/ML VIAL IV PRN (12:42)
[2023-08-05] MEDS ORDERED: Naloxone 0.4 mg VIAL 0.4 mg/ml 1 ml VIAL IV PRN (12:42)
[2023-08-05] MEDS ORDERED: Magnesium Sulfate 2 gm BAG 2 GM/50 ML BAG IVPB ONE (14:20)
[2023-08-05] MEDS: Multivitamins/Minerals TAB PO SCH (15:58)
[2023-08-05] MEDS: Enoxaparin 40 MG/0.4 ML SYR SUBCUT SCH (18:04)
[2023-08-05] MEDS: cefTRIAXone 1 gm/50 mL D5W 1 GM/50 ML BAG IV SCH (22:07)
[2023-08-06 06:23] LABS: ABS Lymphocytes 1.2 10^3/uL (1.0-4.8); ABS Monocytes 0.5 10^3/uL (0.0-1.1); ABS Neutrophils 8.2 10^3/uL (1.5-7.6); Eosinophil % 0.1 %; Hematocrit 31.4 % (38-53); Hemoglobin 10.7 g/dL (13.2-16.3); Mean Corpuscular Volume 94.1 fL (80-97); Mean Platelet Volume 8.2 fL (7.5-11.2); Platelet Count 322 10^3/uL (150-450); Red Blood Count 3.34 10^6/uL (4.06-5.63); Red Cell Distribution Width 13.8 % (12-17)
[2023-08-06 06:40] LABS: Calcium 8.5 mg/dL (8.6-10.3); Creatinine, Serum 1.61 mg/dL (0.67-1.17); Potassium 4.3 mmol/L (3.5-5.0); eGFR CKD-EPI 48.1 (>60)
[2023-08-06] MEDS: Multivitamins/Minerals TAB PO SCH (08:31)
[2023-08-06] MEDS: Enoxaparin 40 MG/0.4 ML SYR SUBCUT SCH (18:01)
[2023-08-06] MEDS: cefTRIAXone 1 gm/50 mL D5W 1 GM/50 ML BAG IV SCH (21:23)
[2023-08-07 06:47] LABS: Calcium 7.9 mg/dL (8.6-10.3); Creatinine, Serum 1.52 mg/dL (0.67-1.17); Potassium 4.3 mmol/L (3.5-5.0); eGFR CKD-EPI 51.5 (>60)
[2023-08-07] MEDS: Multivitamins/Minerals TAB PO SCH (08:20)
[2023-08-07] MEDS: Enoxaparin 40 MG/0.4 ML SYR SUBCUT SCH (18:12)
[2023-08-07] MEDS: cefTRIAXone 1 gm/50 mL D5W 1 GM/50 ML BAG IV SCH (21:42)
[2023-08-08 06:45] LABS: ABS Eosinophils 0.2 10^3/uL (0.0-0.5); ABS Monocytes 0.5 10^3/uL (0.0-1.1); ABS Neutrophils 4.5 10^3/uL (1.5-7.6); Eosinophil % 2.1 %; Hematocrit 28.8 % (38-53); Hemoglobin 9.7 g/dL (13.2-16.3); Lymphocyte % 27.4 %; Mean Corpuscular Hemoglobin 32.2 pg (27-33); Mean Corpuscular Hgb Conc 33.8 g/dL (31-36); Mean Corpuscular Volume 95.1 fL (80-97); Mean Platelet Volume 7.8 fL (7.5-11.2); Platelet Count 294 10^3/uL (150-450); Red Blood Count 3.03 10^6/uL (4.06-5.63); Red Cell Distribution Width 14.4 % (12-17); White Blood Count 7.3 10^3/uL (3.6-10.2)
[2023-08-08 07:04] LABS: Creatinine, Serum 1.35 mg/dL (0.67-1.17); Potassium 4.4 mmol/L (3.5-5.0); eGFR CKD-EPI 59.4 (>60)
[2023-08-08] MEDS: Multivitamins/Minerals TAB PO SCH (09:11)
[2023-08-08 09:36] VITALS: BP 139/61
== END 2023-08-08 10:45 | DRG 720 ==
LOC: ED 15:14 → EDHOLD 17:48 → SUATTDRO 17:48 → SSU 07-29 03:50
PROVIDERS: ADMIT Internal Medicine; ATTEND Hospitalist

== ENCOUNTER 2024-08-15 08:09 | Inpatient (IN) ==
[2024-08-15] MEDS: nitroGLYCERIN DRIP 25,000 MCG/250 ML BTL IV SCH (08:14)
[2024-08-15 08:35] LABS: Hematocrit 43.3 % (38-53); Hemoglobin 14.6 g/dL (13.2-16.3); Mean Corpuscular Hemoglobin 32.5 pg (27-33); Mean Corpuscular Hgb Conc 33.8 g/dL (31-36); Mean Corpuscular Volume 96.1 fL (80-97); Mean Platelet Volume 8.5 fL (7.5-11.2); Platelet Count 372 10^3/uL (150-450); Red Cell Distribution Width 13.5 % (12-17); White Blood Count 11.5 10^3/uL (3.6-10.2)
[2024-08-15 08:44] LABS: INR 0.98 (0.85-1.14)
[2024-08-15] MEDS ORDERED: Sodium Bicarbonate 8.4% SYR 50 ml SYRINGE ONE ×2 (08:44→09:00)
[2024-08-15 08:47] LABS: Venous Bicarbonate HCO3 17.2 mmol/L (24-28)
[2024-08-15 09:11] LABS: ABS Basophils 0.2 10^3/uL (0.0-0.1); ABS Eosinophils 0.5 10^3/uL (0.0-0.5); ABS Lymphocytes 5.3 10^3/uL (1.0-4.8); ABS Monocytes 0.7 10^3/uL (0.0-1.1); ABS Neutrophils 4.9 10^3/uL (1.5-7.6); ABS Nucleated RBC 0.02 10^3/ul; Albumin 3.5 g/dL (3.5-5.7); Albumin/Globulin Ratio 0.9 (1-3); Calcium 8.7 mg/dL (8.6-10.3); Creatinine, Serum 2.25 mg/dL (0.67-1.17); Eosinophil % 4.3 %; Globulin 3.8 g/dL (2-4); Lymphocyte % 46.1 %; Nucleated Red Blood Cells % 0.1 %/100WBC (0.0-0.8); Potassium 4.6 mmol/L (3.5-5.0); Total Bilirubin 0.4 mg/dL (0.2-1.0); Total Protein 7.3 g/dL (6.4-8.9)
[2024-08-15 09:55] LABS: High Sensitivity Troponin 1 Hr 280 pg/mL (<20)
[2024-08-15] MEDS: Furosemide 40 mg/4 ml IV VIAL IV ONE ×3 (09:58→16:39)
[2024-08-15] MEDS: Heparin DRIP 25,000 UNITS BAG 25,000 UNITS/250 ML BAG IV SCH (10:53)
[2024-08-15] MEDS: Heparin 5000 UNITS/ML 1 mL VIAL IV SCH (10:54)
[2024-08-15 12:27] LABS: Creatinine, Serum 2.22 mg/dL (0.67-1.17); eGFR CKD-EPI 32.5 (>60)
[2024-08-15 15:22] LABS: C Reactive Protein 41.23 mg/L (<8.01)
[2024-08-15] MEDS ORDERED: Cisatracurium 100 MG in NS 0.9% 250 ml 200 ML IV SCH (17:30)
[2024-08-15] MEDS: Rocuronium 50 mg VIAL 10 mg/ml 5 ml VIAL (50 mg) IV ONE (17:30)
[2024-08-15 23:59] LABS: Calcium 8.7 mg/dL (8.6-10.3); Creatinine, Serum 2.76 mg/dL (0.67-1.17)
[2024-08-16 04:13] LABS: ABS Basophils 0.1 10^3/uL (0.0-0.1); ABS Eosinophils 0.2 10^3/uL (0.0-0.5); ABS Lymphocytes 1.7 10^3/uL (1.0-4.8); ABS Monocytes 0.8 10^3/uL (0.0-1.1); ABS Neutrophils 5.6 10^3/uL (1.5-7.6); ABS Nucleated RBC 0.01 10^3/ul; Eosinophil % 2.8 %; Hematocrit 35.4 % (38-53); Hemoglobin 12.2 g/dL (13.2-16.3); Lymphocyte % 19.8 %; Mean Corpuscular Hemoglobin 32.6 pg (27-33); Mean Corpuscular Hgb Conc 34.6 g/dL (31-36); Mean Corpuscular Volume 94.3 fL (80-97); Mean Platelet Volume 8.4 fL (7.5-11.2); Nucleated Red Blood Cells % 0.1 %/100WBC (0.0-0.8); Platelet Count 247 10^3/uL (150-450); Red Blood Count 3.75 10^6/uL (4.06-5.63); Red Cell Distribution Width 13.4 % (12-17); White Blood Count 8.5 10^3/uL (3.6-10.2)
[2024-08-16 04:54] LABS: Calcium 8.3 mg/dL (8.6-10.3); Creatinine, Serum 2.84 mg/dL (0.67-1.17); Magnesium 1.7 mg/dL (1.9-2.7); Potassium 3.5 mmol/L (3.5-5.0); eGFR CKD-EPI 24.2 (>60)
[2024-08-16] MEDS: Potassium Chlor 20 meq TAB.ER PO ONE (07:56)
[2024-08-16] MEDS: Magnesium Sulfate 2 gm BAG 2 GM/50 ML BAG IVPB ONE (07:56)
[2024-08-16] MEDS: Furosemide 40 mg/4 ml IV VIAL IV ONE (11:06)
[2024-08-16 12:15] LABS: HDL Cholesterol 54.7 mg/dL
[2024-08-16 12:35] LABS: Ferritin 434.5 ng/mL (24-336)
[2024-08-16 17:09] LABS: CRP High Sensitivity 55.74 mg/L (<2.00); Calcium 9.1 mg/dL (8.6-10.3); Creatinine, Serum 3.02 mg/dL (0.67-1.17); Potassium 4.2 mmol/L (3.5-5.0); eGFR CKD-EPI 22.4 (>60)
[2024-08-16 17:27] LABS: Ferritin 365.4 ng/mL (24-336)
[2024-08-16 17:51] LABS: High Sensitivity Troponin 1 Hr 833 pg/mL (<20)
[2024-08-17 06:21] LABS: ABS Basophils 0.1 10^3/uL (0.0-0.1); ABS Eosinophils 0.2 10^3/uL (0.0-0.5); ABS Lymphocytes 1.5 10^3/uL (1.0-4.8); ABS Monocytes 0.8 10^3/uL (0.0-1.1); ABS Neutrophils 4.7 10^3/uL (1.5-7.6); Eosinophil % 2.3 %; Hematocrit 36.7 % (38-53); Hemoglobin 12.5 g/dL (13.2-16.3); Lymphocyte % 20.5 %; Mean Corpuscular Hemoglobin 32.2 pg (27-33); Mean Corpuscular Hgb Conc 34.1 g/dL (31-36); Mean Corpuscular Volume 94.6 fL (80-97); Mean Platelet Volume 8.3 fL (7.5-11.2); Platelet Count 232 10^3/uL (150-450); Red Blood Count 3.88 10^6/uL (4.06-5.63); Red Cell Distribution Width 13.3 % (12-17); White Blood Count 7.2 10^3/uL (3.6-10.2)
[2024-08-17 07:09] LABS: Magnesium 2.1 mg/dL (1.9-2.7)
[2024-08-17 07:53] LABS: Creatinine, Serum 3.19 mg/dL (0.67-1.17); Potassium 3.9 mmol/L (3.5-5.0)
[2024-08-17] MEDS ORDERED: Sulfur Hexaflouride MICROSPHR 25 MG VIAL IV PRN (09:59)
[2024-08-17] MEDS: ceFAZolin 1 GM in Dextrose 1 GM/50 ML BAG IVPB SCH (14:05)
[2024-08-17] MEDS: Heparin 5000 UNITS/ML 1 mL VIAL SUBCUT SCH (22:32)
[2024-08-18 06:07] LABS: ABS Eosinophils 0.2 10^3/uL (0.0-0.5); ABS Lymphocytes 1.7 10^3/uL (1.0-4.8); ABS Monocytes 0.9 10^3/uL (0.0-1.1); ABS Neutrophils 3.8 10^3/uL (1.5-7.6); Eosinophil % 3.7 %; Hemoglobin 12.4 g/dL (13.2-16.3); Lymphocyte % 25.9 %; Mean Corpuscular Hemoglobin 32.5 pg (27-33); Mean Corpuscular Hgb Conc 34.5 g/dL (31-36); Mean Corpuscular Volume 94.1 fL (80-97); Mean Platelet Volume 8.6 fL (7.5-11.2); Nucleated Red Blood Cells % 0.1 %/100WBC (0.0-0.8); Platelet Count 237 10^3/uL (150-450); Red Blood Count 3.83 10^6/uL (4.06-5.63); Red Cell Distribution Width 13.5 % (12-17); White Blood Count 6.7 10^3/uL (3.6-10.2)
[2024-08-18 07:38] LABS: Urine Appearance Turbid; Urine Bilirubin Negative (Negative); Urine Blood Trace (Negative); Urine Glucose Negative (Negative); Urine Ketones Negative (Negative); Urine Nitrite Negative (Negative); Urine Protein 1+ (>=30 mg/dL) (Negative); Urine Urobilinogen Negative (Negative)
[2024-08-18 07:38] LABS: Calcium 8.9 mg/dL (8.6-10.3); Creatinine, Serum 3.17 mg/dL (0.67-1.17); Potassium 4.1 mmol/L (3.5-5.0); eGFR CKD-EPI 21.2 (>60)
[2024-08-18 08:06] LABS: Urine Bacteria 3+ /HPF (Absent); Urine Red Blood Cell 2+(6-10/hpf) /HPF (0-Trace); Urine Squamous Epithelial Cell Present /HPF (Absent); Urine White Blood Cell 3+(>20/hpf) /HPF (0-Trace)
[2024-08-18 08:28] LABS: Urine Color Light-Yellow
[2024-08-18] MEDS ORDERED: Aminophylline 25 MG/ML VIAL ONE (08:46)
[2024-08-18] MEDS ORDERED: Regadenoson 0.4 MG/5 ML SYRINGE ONE (08:46)
[2024-08-19 06:48] LABS: Calcium 8.8 mg/dL (8.6-10.3); Creatinine, Serum 3.04 mg/dL (0.67-1.17); Magnesium 1.9 mg/dL (1.9-2.7); Potassium 4.3 mmol/L (3.5-5.0); eGFR CKD-EPI 22.3 (>60)
[2024-08-20 07:07] LABS: ABS Basophils 0.1 10^3/uL (0.0-0.1); ABS Eosinophils 0.3 10^3/uL (0.0-0.5); ABS Lymphocytes 1.6 10^3/uL (1.0-4.8); ABS Monocytes 0.8 10^3/uL (0.0-1.1); ABS Neutrophils 3.8 10^3/uL (1.5-7.6); Eosinophil % 4.6 %; Hematocrit 35.7 % (38-53); Hemoglobin 12.1 g/dL (13.2-16.3); Lymphocyte % 24.6 %; Mean Corpuscular Hgb Conc 33.9 g/dL (31-36); Mean Corpuscular Volume 94.6 fL (80-97); Mean Platelet Volume 8.8 fL (7.5-11.2); Nucleated Red Blood Cells % 0.1 %/100WBC (0.0-0.8); Platelet Count 231 10^3/uL (150-450); Red Blood Count 3.78 10^6/uL (4.06-5.63); Red Cell Distribution Width 13.2 % (12-17); White Blood Count 6.7 10^3/uL (3.6-10.2)
[2024-08-20 07:35] LABS: Calcium 8.8 mg/dL (8.6-10.3); Creatinine, Serum 3.11 mg/dL (0.67-1.17); Potassium 4.5 mmol/L (3.5-5.0); eGFR CKD-EPI 21.7 (>60)
[2024-08-21 06:38] LABS: Calcium 9.1 mg/dL (8.6-10.3); Creatinine, Serum 3.42 mg/dL (0.67-1.17); Potassium 4.3 mmol/L (3.5-5.0); eGFR CKD-EPI 19.3 (>60)
[2024-08-21 12:55] LABS: Urine Appearance Turbid; Urine Bilirubin Negative (Negative); Urine Blood Trace (Negative); Urine Glucose Negative (Negative); Urine Ketones Negative (Negative); Urine Nitrite Negative (Negative); Urine Protein 1+ (>=30 mg/dL) (Negative); Urine Urobilinogen Negative (Negative); Urine pH 7.5 (5.0-8.0)
[2024-08-21 13:02] LABS: Urine Bacteria 1+ /HPF (Absent); Urine Red Blood Cell 1+(3-5/hpf) /HPF (0-Trace); Urine Squamous Epithelial Cell Present /HPF (Absent); Urine White Blood Cell 3+(>20/hpf) /HPF (0-Trace)
[2024-08-21 15:03] LABS: Urine Color Yellow
[2024-08-22 06:16] LABS: ABS Eosinophils 0.4 10^3/uL (0.0-0.5); ABS Lymphocytes 1.6 10^3/uL (1.0-4.8); ABS Monocytes 0.8 10^3/uL (0.0-1.1); ABS Neutrophils 3.3 10^3/uL (1.5-7.6); Hematocrit 34.5 % (38-53); Hemoglobin 11.6 g/dL (13.2-16.3); Lymphocyte % 26.5 %; Mean Corpuscular Hemoglobin 31.8 pg (27-33); Mean Corpuscular Hgb Conc 33.7 g/dL (31-36); Mean Corpuscular Volume 94.3 fL (80-97); Platelet Count 232 10^3/uL (150-450); Red Blood Count 3.66 10^6/uL (4.06-5.63); Red Cell Distribution Width 13.1 % (12-17); White Blood Count 6.2 10^3/uL (3.6-10.2)
[2024-08-22 06:31] LABS: Calcium 8.8 mg/dL (8.6-10.3); Creatinine, Serum 3.11 mg/dL (0.67-1.17); Potassium 4.5 mmol/L (3.5-5.0); eGFR CKD-EPI 21.7 (>60)
[2024-08-22] MEDS: Bumetanide IV 0.25 MG/ML 4 ml VIAL (1 mg) IV SLOW PU SCH (14:53)
[2024-08-22 15:09] LABS: Rheumatoid Factor < 10 IU/mL (<15)
[2024-08-22 15:35] LABS: HIV 4th Generation Nonreactive (Nonreactive); Hepatitis B Surface Antigen Nonreactive (Nonreactive)
[2024-08-22 15:52] LABS: Hepatitis B Surface Ab Not Immune (Immune); Hepatitis C Antibody Negative (Negative)
[2024-08-23 07:52] LABS: ABS Eosinophils 0.4 10^3/uL (0.0-0.5); ABS Lymphocytes 1.6 10^3/uL (1.0-4.8); ABS Monocytes 0.8 10^3/uL (0.0-1.1); ABS Neutrophils 3.5 10^3/uL (1.5-7.6); Eosinophil % 6.3 %; Hematocrit 35.8 % (38-53); Hemoglobin 12.2 g/dL (13.2-16.3); Lymphocyte % 25.2 %; Mean Corpuscular Hemoglobin 32.1 pg (27-33); Mean Corpuscular Hgb Conc 34.1 g/dL (31-36); Mean Platelet Volume 9.1 fL (7.5-11.2); Platelet Count 250 10^3/uL (150-450); Red Cell Distribution Width 13.1 % (12-17); White Blood Count 6.3 10^3/uL (3.6-10.2)
[2024-08-23 08:09] LABS: Calcium 8.8 mg/dL (8.6-10.3); Creatinine, Serum 3.09 mg/dL (0.67-1.17); Phosphorus 5.6 mg/dL (2.5-5.0); Potassium 4.3 mmol/L (3.5-5.0); eGFR CKD-EPI 21.8 (>60)
[2024-08-24 06:22] LABS: ABS Eosinophils 0.4 10^3/uL (0.0-0.5); ABS Lymphocytes 1.7 10^3/uL (1.0-4.8); ABS Monocytes 0.8 10^3/uL (0.0-1.1); ABS Neutrophils 3.5 10^3/uL (1.5-7.6); ABS Nucleated RBC 0.01 10^3/ul; Hematocrit 33.2 % (38-53); Hemoglobin 11.5 g/dL (13.2-16.3); Lymphocyte % 25.8 %; Mean Corpuscular Hemoglobin 32.4 pg (27-33); Mean Corpuscular Hgb Conc 34.7 g/dL (31-36); Mean Corpuscular Volume 93.5 fL (80-97); Mean Platelet Volume 8.9 fL (7.5-11.2); Nucleated Red Blood Cells % 0.1 %/100WBC (0.0-0.8); Platelet Count 258 10^3/uL (150-450); Red Blood Count 3.55 10^6/uL (4.06-5.63); Red Cell Distribution Width 13.2 % (12-17); White Blood Count 6.4 10^3/uL (3.6-10.2)
[2024-08-24 06:52] LABS: Calcium 8.9 mg/dL (8.6-10.3); Creatinine, Serum 3.31 mg/dL (0.67-1.17); Potassium 4.5 mmol/L (3.5-5.0); eGFR CKD-EPI 20.1 (>60)
[2024-08-24 13:47] LABS: Complement C3 108 mg/dL (75 - 175)
[2024-08-24 20:22] LABS: Kappa Free Light Chain 11.8 mg/dL; Lambda Free Light Chain, S 8.24 mg/dL
[2024-08-25 06:44] LABS: Calcium 8.9 mg/dL (8.6-10.3); Creatinine, Serum 3.31 mg/dL (0.67-1.17); Potassium 4.3 mmol/L (3.5-5.0); eGFR CKD-EPI 20.1 (>60)
[2024-08-25 11:48] LABS: C-ANCA Negative (Negative); P-ANCA Negative (Negative)
[2024-08-25 14:32] LABS: PLA2R, Immunofluorescence, S Negative (Negative)
[2024-08-26 07:07] LABS: Calcium 8.8 mg/dL (8.6-10.3); Creatinine, Serum 3.17 mg/dL (0.67-1.17); Potassium 4.4 mmol/L (3.5-5.0); eGFR CKD-EPI 21.2 (>60)
[2024-08-26 09:05] LABS: Flag, M-protein Isotype Negative (Negative); Immunoglobulin A (IgA), S 408 mg/dL (61 - 356); Immunoglobulin G (IgG), S 1520 mg/dL (767 - 1590); Immunoglobulin M (IgM), S 37 mg/dL (37 - 286)
[2024-08-26 14:15] VITALS: BP 123/68
== END 2024-08-26 15:00 | disposition home or self-care (01) | DRG 194 ==
LOC: ED 08:09 → SUATTDRO 09:57 → EDHOLD 09:57 → ICU 10:08 → MEDTELE 08-16 13:34
PROVIDERS: ADMIT Student in an Organized Health Care Education/Training Program; ATTEND Internal Medicine